=== PATIENT | female | born 1960 | race Caucasian/White ===

== ENCOUNTER → 2019-02-23 00:01 | Outpatient (BNVA) | payer BC, SELFPAY | PROVIDERS: Family Provider Nurse Practitioner Family; PCP Nurse Practitioner Family; Visit Provider Nurse Practitioner Family | DX: S92.352A Displaced fracture of fifth metatarsal bone, left foot, initial encounter for closed fracture (principal); X58.XXXA Exposure to other specified factors, initial encounter | CPT/HCPCS: 73630 ==

== ENCOUNTER → 2019-03-08 08:58 | Outpatient (BNVA) | payer BC, SELFPAY | PROVIDERS: Family Provider Nurse Practitioner Family; PCP Nurse Practitioner Family; Referring Provider Nurse Practitioner Family; Visit Provider Podiatrist Foot & Ankle Surgery | DX: S92.352A Displaced fracture of fifth metatarsal bone, left foot, initial encounter for closed fracture (principal); X58.XXXA Exposure to other specified factors, initial encounter | CPT/HCPCS: 73630 ==

== ENCOUNTER → 2019-03-29 08:52 | Outpatient (BNVA) | payer BC, SELFPAY | PROVIDERS: Family Provider Nurse Practitioner Family; Visit Provider Podiatrist Foot & Ankle Surgery | DX: S92.352A Displaced fracture of fifth metatarsal bone, left foot, initial encounter for closed fracture (principal); X58.XXXA Exposure to other specified factors, initial encounter; B35.1 Tinea unguium | CPT/HCPCS: 73630 ==

== ENCOUNTER → 2019-04-13 14:15 | Outpatient (BNVA) | payer BC, SELFPAY | PROVIDERS: Visit Provider Podiatrist Foot & Ankle Surgery | DX: S92.352A Displaced fracture of fifth metatarsal bone, left foot, initial encounter for closed fracture (principal); X58.XXXA Exposure to other specified factors, initial encounter | CPT/HCPCS: 73630 ==

== ENCOUNTER → 2019-06-24 11:51 | Outpatient (BNVA) | payer BC, SELFPAY | PROVIDERS: PCP Nurse Practitioner Family; Visit Provider Nurse Practitioner Family | DX: R53.83 Other fatigue (principal); Z13.6 Encounter for screening for cardiovascular disorders; R13.10 Dysphagia, unspecified; J32.9 Chronic sinusitis, unspecified | CPT/HCPCS: 80053; 80061; 82306; 82607; 84443; 85025; 86308 ==

== ENCOUNTER 2019-10-12 14:18 | Inpatient (IN) | payer BC, SELFPAY ==
[2019-10-12] VITALS (9 sets, daily range): BP systolic 114–148; BP diastolic 62–109; PULSE 64–83; RESP 16–22; TEMP 36.7–36.8; O2SAT 93–96; BMI 24.7
--- NOTE | 2019-10-12 14:31 | W.ED.CHESTPA ---
HPI - Chest Pain General: Chief Complaint: Chest Pain Stated Complaint: CHEST PAIN Time Seen by Provider: 10/12/19 14:20 History of Present Illness: HPI narrative: 58-year-old female presents emergency room after developing chest pain she was at home preparing to return to work after having had lunch. She began having chest discomfort that radiated into her left jaw and into her left arm along with some pressure she said it was very heavy like an elephant sitting on her chest she never had an episode like this previously she not had any episodes leading up to this. She called her brother who called 911. On arrival EMS did not have any abnormal EKG findings and gave her 3 of sublingual nitro 1 inch of Nitropaste 325 mg of aspirin and 4 mg of morphine by the time she arrived in the ER she had complete resolution of symptoms. Patient was exposed in the workplace to someone with COVID within the last 2 weeks. She is not had any symptoms up to this point she does have a chronic baseline smoker's cough but has not had any fever not had any anosmia she not had any GI symptoms not had any respiratory symptoms. She does smoke and has an extensive cardiac history in her family with early cardiac and in addition she also has a history of hyperlipidemia. MD complaint: chest heaviness Onset (ago): minute(s) Timing of current episode: episodic and now resolved Prior episodes: No Onset: during rest Pain location: left chest Pain radiation: left arm, neck and jaw/teeth Severity: severe Quality: heaviness Relieving factors: nitroglycerin and rest Exacerbating factors: nothing Associated symptoms: Reports dyspnea and nausea; Deny abdominal pain, diaphoresis, fever(s), leg edema, palpitations, sense of impending doom, syncope, vomiting or other Treatment prior to arrival: aspirin, nitroglycerin, oxygen and other (Morphine) Review of Systems Const: Denies: fever(s) or diaphoresis ENMT: Denies: throat pain, ear or mastoid pain, nasal discharge or nasal congestion Card: Denies: palpitations or syncope Resp: Reports: dyspnea GI: Reports: nausea; Denies: abdominal pain or vomiting : Denies: flank pain, difficulty voiding, dysuria, urinary frequency or urinary urgency Skin/Breast: Denies: rash or pruritus PFS ED PFSH: Medical History Abnormal mammogram Acid reflux Biliary dyskinesia Cervical spine instability Dyslipidemia History of hypokalemia Hormone replacement therapy GENE (obstructive sleep apnea) Psoriasis Psoriatic arthritis Smoking addiction Statin intolerance Surgical History History of breast augmentation History of cholecystectomy History of hysterectomy Family History Mother CAD (coronary artery disease) Brother CAD (coronary artery disease) Social History Smoking and tobacco status: current every day smoker Alcohol intake: never Substance/Drug Use: never Lives independently: Yes Marital status: Current occupational status: employed Physical Exam Const: COMMON NORMALS: no acute distress GENERAL APPEARANCE: cooperative and comfortable ORIENTATION/CONSCIOUSNESS: Yes awake, Yes oriented to person, Yes oriented to place and Yes oriented to time HENMT: COMMON NORMALS: normocephalic, atraumatic, hearing grossly normal bilaterally, external ears normal, EAC's normal, TM's normal bilaterally, Normal nasal mucous membranes and turbinates present, moist oral mucous membranes and oropharynx normal HEAD & SCALP: normocephalic and atraumatic NOSE: Normal nasal mucous membranes and turbinates present EXTERNAL EAR: Yes external ears normal EXTERNAL AUDITORY CANAL: EAC's normal TYMPANIC MEMBRANE: TM's normal bilaterally Eye: COMMON NORMALS: Equal, round and reactive pupils present, EOMs intact bilaterally, conjunctivae normal and no scleral icterus CONJUNCTIVA: Yes conjunctivae normal PUPIL: Yes Equal, round and reactive pupils present Neck/C-Spine: COMMON NORMALS: full ROM, no lymphadenopathy, supple and no JVD Lymph: LYMPHATIC: no lymphadenopathy noted and no lymphedema noted Resp: COMMON NORMALS: normal respiratory effort, No retractions, No use of accessory muscles and clear to auscultation bilaterally AUSCULTATION: clear to auscultation bilaterally Cardio: COMMON NORMALS: no JVD, regular rate, regular rhythm and No murmurs present (Cardio) RATE: regular rate RHYTHM: regular rhythm GI: COMMON NORMALS: Soft to palpation and No hepatosplenomegaly present AUSCULTATION: Yes normoactive bowel sounds PALPATION: Yes Soft to palpation, No Tenderness to palpation present (GI), No Guarding due to palpation present (GI) and Yes No hepatosplenomegaly present Extremity: COMMON NORMALS: normal to inspection, capillary refill normal, no clubbing, cyanosis or edema, no calf tenderness and no pedal edema Neuro: SENSORIUM/ORIENTATION: Yes oriented to person, Yes oriented to place and Yes oriented to time Skin: COMMON NORMALS: no rashes or lesions noted GENERAL SKIN EXAM: no rashes or lesions noted Course Vital Signs: Vital signs: Vital Signs Temperature 98.7 F 10/13/19 07:30 Pulse Rate 82 10/13/19 07:30 Respiratory Rate 18 10/13/19 07:30 Blood Pressure 150/88 10/13/19 07:30 Pulse Oximetry 90 10/13/19 07:30 MDM - Chest Pain MDM Narrative: Medical decision making narrative: Chest pain relieved by nitro in a patient who has hyperlipidemia strong family history and very suspicious course. Nonspecific ST changes discussed with hospitalist will go ahead and admit for rule out and stress testing Lab Data: Labs: Lab Results 10/12/19 10/12/19 10/12/19 Range/Units 15:14 15:14 15:14 WBC 8.7 (4.0-10.0) 10^3/ uL RBC 4.18 (4.1-5.3) 10^6/u L Hgb 12.1 (11.5-15.3) g/dL Hct 36.0 L (37.0-47.0) % MCV 86.1 (81-99) fL MCH 28.9 (28.0-34.0) pg MCHC 33.6 (30.0-36.0) g/dL RDW 13.7 (12.1-15.1) % Plt Count 290 (130-400) 10^3/c mm MPV 11.1 H (7.4-10.4) fL Neut % (Auto) 62.8 % Lymph % (Auto) 29.6 % [place] % (Auto) 5.9 % Eos % (Auto) 1.2 % Baso % (Auto) 0.3 % Neut # (Auto) 5.46 (1.8-7.7) 10^3/u L Lymph # (Auto) 2.6 (0.8-4.8) 10^3/u L [place] # (Auto) 0.5 (0.2-0.9) 10^3/u L Eos # (Auto) 0.1 (0.0-0.8) 10^3/u L Baso # (Auto) 0.0 (0.0-0.1) 10^3/u L Nucleated RBC % (a uto) 0 % Nucleated RBCs # 0.0 /100WBC Sodium 143 (136-145) mmol/L Potassium 3.3 L (3.5-5.1) mmol/L Chloride 106 (98-107) mmol/L Carbon Dioxide 26 (22-29) mmol/L Anion Gap 14.3 (5-19) BUN 8 (6-20) mg/dL Creatinine 0.5 (0.5-0.9) mg/dL GFR Calculation 126.3 (90-130) mL/min Glucose 132 H (65-115) mg/dL Estimat Average Gl ucose Hemoglobin A1c (4.0-6.0) % Calculated Osmolal ity 294 (285-295) mOsm/k g Calcium 8.9 (8.5-10.5) mg/dL Troponin T Baselin e 68 H (0-10) ng/L 08/25/20 Range/Units 15:14 WBC (4.0-10.0) 10^3/ uL RBC (4.1-5.3) 10^6/u L Hgb (11.5-15.3) g/dL Hct (37.0-47.0) % MCV (81-99) fL MCH (28.0-34.0) pg MCHC (30.0-36.0) g/dL RDW (12.1-15.1) % Plt Count (130-400) 10^3/c mm MPV (7.4-10.4) fL Neut % (Auto) % Lymph % (Auto) % [place] % (Auto) % Eos % (Auto) % Baso % (Auto) % Neut # (Auto) (1.8-7.7) 10^3/u L Lymph # (Auto) (0.8-4.8) 10^3/u L [place] # (Auto) (0.2-0.9) 10^3/u L Eos # (Auto) (0.0-0.8) 10^3/u L Baso # (Auto) (0.0-0.1) 10^3/u L Nucleated RBC % (a uto) % Nucleated RBCs # /100WBC Sodium (136-145) mmol/L Potassium (3.5-5.1) mmol/L Chloride (98-107) mmol/L Carbon Dioxide (22-29) mmol/L Anion Gap (5-19) BUN (6-20) mg/dL Creatinine (0.5-0.9) mg/dL GFR Calculation (90-130) mL/min Glucose (65-115) mg/dL Estimat Average Gl ucose 114 Hemoglobin A1c 5.6 (4.0-6.0) % Calculated Osmolal ity (285-295) mOsm/k g Calcium (8.5-10.5) mg/dL Troponin T Baselin e (0-10) ng/L Discharge Plan Discharge Patient Disposition: Admitted As Inpatient Admit Provider: Lalit Moise Discharge Date/Time: 10/12/19 18:17 Coding Level of Care Code ED Combination Worker for Chg Fwd Exam Comprehensive
--- NOTE | 2019-10-12 14:58 | ECG_ITS ---
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 Measurements Intervals [place] Rate: 70 P: 56 HI: 184 QRS: 18 QRSD: 94 T: 74 QT: 382 QTc: 415 Interpretive Statements SINUS RHYTHM WITH OCCASIONAL VENTRICULAR PREMATURE COMPLEXES NONSPECIFIC T-WAVE ABNORMALITY Compared to ECG 11/05/2014 23:04:16 Ventricular premature complex(es) now present T-wave abnormality still present Electronically Signed On 10-12-2019 17:28:23 CDT by Niecy Lao M.D. [email or web address] [email or web address].[email or web address]/store/[id number] f
[2019-10-12 15:20] LABS: Basophils % 0.3 %; Eosinophils # 0.1 10^3/uL (0.0-0.8); Eosinophils % 1.2 %; Hemoglobin 12.1 g/dL (11.5-15.3); Lymphocytes # 2.6 10^3/uL (0.8-4.8); Lymphocytes % 29.6 %; Mean Corpuscular HGB Conc 33.6 g/dL (30.0-36.0); Mean Corpuscular Hemoglobin 28.9 pg (28.0-34.0); Mean Corpuscular Volume 86.1 fL (81-99); Mean Platelet Volume 11.1 fL (7.4-10.4); Monocytes # 0.5 10^3/uL (0.2-0.9); Monocytes % 5.9 %; Neutrophils # 5.46 10^3/uL (1.8-7.7); Neutrophils % 62.8 %; Nucleated Red Blood Cells % 0 %; Platelet Count 290 10^3/cmm (130-400); Red Blood Count 4.18 10^6/uL (4.1-5.3); Red Cell Distribution Width 13.7 % (12.1-15.1); White Blood Count 8.7 10^3/uL (4.0-10.0)
[2019-10-12 15:37] LABS: Anion Gap 14.3 (5-19); Blood Urea Nitrogen 8 mg/dL (6-20); Calcium 8.9 mg/dL (8.5-10.5); Carbon Dioxide 26 mmol/L (22-29); Chloride 106 mmol/L (98-107); Glomerular Filtration Rate 126.3 mL/min (90-130); Glucose 132 mg/dL (65-115); Osmolality Calculated 294 mOsm/kg (285-295); Potassium 3.3 mmol/L (3.5-5.1); Sodium 143 mmol/L (136-145)
[2019-10-12 15:41] LABS: Troponin(5th) Baseline 68 ng/L (0-10)
--- NOTE | 2019-10-12 16:58 | ECG_ITS ---
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 Measurements Intervals [place] Rate: 62 P: 66 OR: 207 QRS: 23 QRSD: 92 T: 85 QT: 423 QTc: 431 Interpretive Statements SINUS RHYTHM NONSPECIFIC T-WAVE ABNORMALITY Compared to ECG 10/12/2019 14:27:54 Ventricular premature complex(es) no longer present T-wave abnormality still present Electronically Signed On 10-12-2019 17:30:03 CDT by Niecy Lao M.D. [id number]
[2019-10-12 17:29] LABS: Troponin 5 2HR 91.72 ng/L (0-10)
[2019-10-12 17:38] LABS: Troponin 5 2HR Delta 23.72 ABS# (0-10)
--- NOTE | 2019-10-12 18:38 | PM.HP ---
Providers/Chief Complaint Admitting Physician: Lalit Moise Primary Care Provider: JOSHUA Cary Chief Complaint: CHEST PAIN History of Present Illness Charis Petersen is a pleasant 58 year old lady, current smoker with history of HLD, history of [place] in her mother, brother, was running from home to work after a break and started having episode of chest pressure, which she described as a heavy weight on her chest, radiating to the left arm, to her jaw. The pain continued up until EMS arrived and she received 4 aspirins, nitroglycerin, Nitropaste, morphine, all of which had resolved the pain. At the time of my visit she was chest pain-free. EKG showed nonspecific T wave changes. Troponin elevated at 68. She has had no respiratory symptoms. Denies any changes with movement or any recent injury. Denies that it felt like heartburn. Review of Systems Const: Denies: fever(s), chills, body aches or malaise Eyes: Denies: change in vision or eye redness ENMT: Denies: throat pain, oral sores or ear or mastoid pain Card: Reports: chest pain; Denies: edema, pre-syncope or dyspnea on exertion Resp: Denies: dyspnea, productive cough, change in phlegm color or hemoptysis GI: Denies: abdominal pain, nausea, vomiting, diarrhea, constipation, hematochezia or melena : Denies: flank pain, urinary frequency or hematuria Musc: Denies: back pain, joint swelling or joint redness Skin/Breast: Denies: rash, sores or new lesions Neuro: Denies: headache(s), numbness in extremities, weakness in extremities, dizziness, confusion or seizure-like activity Endo: Denies: polyuria or polydipsia Adrian/Lymph: Denies: easy bleeding or purpura All/Imm: Denies: urticaria, throat swelling or tongue swelling Medications/Allergies Home Medications Medication Instructions Recorded Confirmed Last Taken Type adalimumab 40 mg/0.8 mL 40 mg SUBCUT .EVERY 2 WEEKS each 02/23/19 10/12/19 Unknown History subcutaneous syringe kit cetirizine 10 mg tablet 10 mg PO DAILY PRN tab 02/23/19 10/12/19 Unknown History acetaminophen [Tylenol Extra 500 - 1,000 mg PO PRN 10/12/19 10/12/19 Unknown History Strength] Allergies Allergy/AdvReac Type Severity Reaction Status Date / Time No Known Allergies Allergy Verified 10/12/19 14:31 PFSH Acute PFSH: Medical History (Updated 10/12/19 @ 18:52 by Lalit Moise MD) Abnormal mammogram Acid reflux Biliary dyskinesia Cervical spine instability Dyslipidemia History of hypokalemia Hormone replacement therapy GENE (obstructive sleep apnea) Psoriasis Psoriatic arthritis Smoking addiction Statin intolerance Surgical History History of breast augmentation History of cholecystectomy History of hysterectomy Family History Mother CAD (coronary artery disease) Brother CAD (coronary artery disease) Social History Smoking and tobacco status: current every day smoker Alcohol intake: never Substance/Drug Use: never Lives independently: Yes Marital status: Current occupational status: employed Vitals/I&O/Wt Last Vital Signs Temp 98.0 F 10/12/19 18:23 Pulse 69 10/12/19 18:34 Resp 20 H 10/12/19 18:34 BP 114/76 10/12/19 18:34 Pulse Ox 95 10/12/19 18:34 Weight last 48 hrs Weight 67.585 kg Physical Exam Const: COMMON NORMALS: no acute distress and patient oriented x3 HENMT: COMMON NORMALS: oropharynx normal Neck/C-Spine: COMMON NORMALS: no JVD Resp: COMMON NORMALS: normal respiratory effort and clear to auscultation bilaterally AUSCULTATION: clear to auscultation bilaterally Cardio: COMMON NORMALS: no JVD, regular rhythm, S1 normal heart sound present, S2 normal heart sound present and No murmurs present (Cardio) RHYTHM: regular rhythm HEART SOUNDS: S1 normal heart sound present and S2 normal heart sound present GI: COMMON NORMALS: Normal to inspection, nondistended, normoactive bowel sounds present, Soft to palpation and non-tender PALPATION: Yes Soft to palpation Extremity: COMMON NORMALS: no joint enlargement and no pedal edema Neuro: COMMON NORMALS: patient oriented x3 and moves all extremities Skin: COMMON NORMALS: no rashes or lesions noted GENERAL SKIN EXAM: no rashes or lesions noted Data : 10/12/19 15:14 10/12/19 15:14 A&P Assessment and plan (1) NSTEMI (non-ST elevated myocardial infarction): Severe chest pressure after episode of exertion which would not resolve until she received aspirin, nitroglycerin and morphine by EMS. With elevation of troponin, initially 68, but with positive delta and troponin rise further up to 92, high concern for non-STEMI with her significant risk factors including smoking, psoriasis and psoriatic arthritis, HLD, family history of [place] in her mother in her 50s and her brother. Continue daily aspirin. Added anticoagulation with Lovenox. Requested loading dose of Plavix. She is intolerant to statins unfortunately after multiple tries with her prior PCP. We will add only low-dose beta-aiden given heart rates are little bit on the soft side in the 60s. Keep n.p.o. after midnight. Appreciate cardiology assessment as she would likely benefit from additional risk stratification due to high suspicion of underlying coronary disease. Encouraged smoking cessation. Check A1c. Status: Acute (2) Statin intolerance: Reports that multiple medications were tried, cannot remember which ones except for Crestor. Says that it was done by her PCP in [place]. Says that her current PCP may have the medications which were tried. She is willing to discuss with her PCP again with regards to trying an alternative as in case of coronary disease these may be life prolonging medications. Status: Acute (3) Hypokalemia: Replacement requested. Status: Acute (4) Smoking addiction: Discussed smoking cessation for 4 minutes. She understands that she needs to quit, given especially her multiple risk factors for coronary disease. She reports she has been trying to cut down, although this has been difficult. Encouraged her to continue. She states she has been reading a book to help with motivation and feels that it should get her on the right path. Provide nicotine replacement in case of cravings. Status: Acute Additional A&P Information Psoriatic arthritis and psoriasis: This is managed by her heel emery buffer with Janet. GERD GENE Hormone replacement therapy Attestations Medical Necessity Statement*: Admission of over 2 midnights is going to be needed for assessment of management of non-STEMI. 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
[2019-10-12] MEDS: potassium chloride ER 10 mEq Tablet 20 MEQ PO (19:07)
[2019-10-12] MEDS: clopidogrel 300 mg Tablet PO ×2 (19:07→22:37)
[2019-10-12] MEDS: enoxaparin 80 mg/0.8 mL Syringe 70 MG SUBCUT (19:08)
[2019-10-12 19:59] LABS: Estmated Average Glucose 114; Hemoglobin A1C 5.6 % (4.0-6.0)
--- NOTE | 2019-10-12 20:58 | ECG_ITS ---
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 Measurements Intervals [place] Rate: 70 P: 0 SD: 209 QRS: 40 QRSD: 99 T: -5 QT: 420 QTc: 455 Interpretive Statements SINUS RHYTHM NONSPECIFIC T-WAVE ABNORMALITY Compared to ECG 10/12/2019 17:15:20 No significant changes Electronically Signed On 10-13-2019 10:26:33 CDT by Lance Cole M.D. [id number]
[2019-10-12 21:34] LABS: Troponin 5 6HR 113.4 ng/L (0-10); Troponin 5 6HR Delta 45.4 ng/L (0-12)
--- NOTE | 2019-10-12 22:30 | PC.NURSE ---
Called Dr. Kent regarding patients cath tomorrow and medications. Orders to give 300 mg of plavix tonight PO, No Lovenox in the AM and to start a heparin drip in the morning. Also clarified no Benadryl prior to cath. Read back verbal order.
--- NOTE | 2019-10-12 22:40 | PM.CONSULT ---
Providers/Reason For Consult Consulting Physican/Specialty*: Lance Cole MD/ Cardiology Reason for Consult*: Chest pain/troponin elevation Attending Physician: Lalit Moise Primary Care Provider: JOSHUA Cary History of Present Illness History of Present Illness Charis Petersen is a 58 year old female with PMH of smoking,hyperlipidemia, family history of CAD, presented to hospital with chest pain. According to the patient, she went back from work to home and there felt chest pressure radiating to jaw and left arm. Pain continued for 20-30 minutes. She has not noted similar pain before. She received aspirin and nitro which relieved the pain. EKG showed non specific T wave changes with occasional PVCs. Troponin was 68 at presentation that has trended up to 113 at 6 hours. . Review of Systems Const: Denies: fever(s), chills, body aches or malaise Eyes: Denies: change in vision or eye redness ENMT: Denies: throat pain, oral sores or ear or mastoid pain Card: Reports: chest pain; Denies: edema, pre-syncope or dyspnea on exertion Resp: Denies: dyspnea, productive cough, change in phlegm color or hemoptysis GI: Denies: abdominal pain, nausea, vomiting, diarrhea, constipation, hematochezia or melena : Denies: flank pain, urinary frequency or hematuria Musc: Denies: back pain, joint swelling or joint redness Skin/Breast: Denies: rash, sores or new lesions Neuro: Denies: headache(s), numbness in extremities, weakness in extremities, dizziness, confusion or seizure-like activity Endo: Denies: polyuria or polydipsia Adrian/Lymph: Denies: easy bleeding or purpura All/Imm: Denies: urticaria, throat swelling or tongue swelling Meds/Allergies Home Medications and Allergies Home Medications Medication Instructions Recorded Confirmed Last Taken Type adalimumab 40 mg/0.8 mL 40 mg SUBCUT .EVERY 2 WEEKS each 02/23/19 10/12/19 Unknown History subcutaneous syringe kit cetirizine 10 mg tablet 10 mg PO DAILY PRN tab 02/23/19 10/12/19 Unknown History acetaminophen [Tylenol Extra 500 - 1,000 mg PO PRN 10/12/19 10/12/19 Unknown History Strength] Allergies Allergy/AdvReac Type Severity Reaction Status Date / Time No Known Allergies Allergy Verified 10/12/19 14:31 Current Medications Current Medications Generic Name Dose Route Start Last Admin Trade Name Deepali PRN Reason Stop Dose Admin Enoxaparin Sodium 70 mg 10/12/19 19:00 10/12/19 19:08 Lovenox SUBCUT 70 mg Q12H TRES Administration PFSH Acute PFSH: Medical History Abnormal mammogram Acid reflux Biliary dyskinesia Cervical spine instability Dyslipidemia History of hypokalemia Hormone replacement therapy GENE (obstructive sleep apnea) Psoriasis Psoriatic arthritis Smoking addiction Statin intolerance Surgical History History of breast augmentation History of cholecystectomy History of hysterectomy Family History Mother CAD (coronary artery disease) Brother CAD (coronary artery disease) Social History Smoking and tobacco status: current every day smoker Alcohol intake: never Substance/Drug Use: never Lives independently: Yes Marital status: Current occupational status: employed Vitals/I&O/Wt Last Vital Signs Temp 98.1 F 10/12/19 18:54 Pulse 65 10/12/19 22:32 Resp 18 10/12/19 22:32 BP 134/81 10/12/19 22:32 Pulse Ox 93 10/12/19 22:32 Weight last 48 hrs Weight 149 lb Physical Exam Const: COMMON NORMALS: no acute distress and patient oriented x3 HENMT: COMMON NORMALS: oropharynx normal Neck/C-Spine: COMMON NORMALS: no JVD Resp: COMMON NORMALS: normal respiratory effort and clear to auscultation bilaterally AUSCULTATION: clear to auscultation bilaterally Cardio: COMMON NORMALS: no JVD, regular rhythm, S1 normal heart sound present, S2 normal heart sound present and No murmurs present (Cardio) RHYTHM: regular rhythm HEART SOUNDS: S1 normal heart sound present and S2 normal heart sound present GI: COMMON NORMALS: Normal to inspection, nondistended, normoactive bowel sounds present, Soft to palpation and non-tender PALPATION: Yes Soft to palpation Extremity: COMMON NORMALS: no joint enlargement and no pedal edema Neuro: COMMON NORMALS: patient oriented x3 and moves all extremities Skin: COMMON NORMALS: no rashes or lesions noted GENERAL SKIN EXAM: no rashes or lesions noted A&P Assessment and plan (1) NSTEMI (non-ST elevated myocardial infarction): Status: Acute (2) Dyslipidemia: Status: Acute (3) Smoking addiction: Status: Acute Patient presented with typical chest pain, troponin elevation, PVCs on ekg. She has smoking history, HLD and strong family history of CAD. We will schedule her for Left heart cath with possible PCI tomorrow. Risks (including bleeding, infection, renal function worsening, stroke, heart attack and ) and benefits of the procedure discussed in detail. Patient verbalized understanding. Aspirin and Plavix Continue anticoagulation Patient was intolerant to statins in the past NPO past mid night Order echo Thank you for involving us with the care of this patient. 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
[2019-10-13] VITALS (26 sets, daily range): BP systolic 130–157; BP diastolic 76–105; PULSE 58–82; RESP 12–18; TEMP 36.8–37.1; O2SAT 90–95
[2019-10-13 03:57] LABS: Basophils # 0.1 10^3/uL (0.0-0.1); Basophils % 0.8 %; Eosinophils # 0.2 10^3/uL (0.0-0.8); Eosinophils % 2.6 %; Hematocrit 35.2 % (37.0-47.0); Hemoglobin 11.8 g/dL (11.5-15.3); Lymphocytes # 3.5 10^3/uL (0.8-4.8); Lymphocytes % 41.1 %; Mean Corpuscular HGB Conc 33.5 g/dL (30.0-36.0); Mean Corpuscular Hemoglobin 29.6 pg (28.0-34.0); Mean Corpuscular Volume 88.4 fL (81-99); Mean Platelet Volume 11.1 fL (7.4-10.4); Monocytes # 0.6 10^3/uL (0.2-0.9); Monocytes % 6.6 %; Neutrophils # 4.11 10^3/uL (1.8-7.7); Neutrophils % 48.7 %; Nucleated Red Blood Cells % 0 %; Platelet Count 260 10^3/cmm (130-400); Red Blood Count 3.98 10^6/uL (4.1-5.3); Red Cell Distribution Width 13.9 % (12.1-15.1); White Blood Count 8.5 10^3/uL (4.0-10.0)
[2019-10-13 04:23] LABS: Anion Gap 10.4 (5-19); Blood Urea Nitrogen 11 mg/dL (6-20); Calcium 8.9 mg/dL (8.5-10.5); Carbon Dioxide 26 mmol/L (22-29); Chloride 107 mmol/L (98-107); Glomerular Filtration Rate 102.3 mL/min (90-130); Glucose 107 mg/dL (65-115); Osmolality Calculated 287 mOsm/kg (285-295); Potassium 3.4 mmol/L (3.5-5.1); Sodium 140 mmol/L (136-145)
--- NOTE | 2019-10-13 05:59 | PC.NURSE ---
Heparin Drip order placed per Dr. Arechiga orders. Lovenox Dc'd per his request. Baseline PTT obtained. Awaiting results. Will continue to monitor.
[2019-10-13] MEDS: heparin drip 25,000 UNIT/500 ML PREMIX 18.9 UNIT IV (07:15)
[2019-10-13] MEDS: aspirin 325 mg Tablet PO (08:39)
[2019-10-13] MEDS: clopidogrel 75 mg Tablet PO (08:39)
[2019-10-13] MEDS: metoprolol tartrate 25 mg Tablet 12.5 MG PO (08:39)
[2019-10-13] MEDS: sodium chloride 0.9% 1,000 ML 50 ML IV (08:42)
--- NOTE | 2019-10-13 10:55 | XACV_ITS ---
Exam Room: [facility] Ht: 165 cm Wt: 68 kg BSA: 1.77 m2 Gender: Female : 1960 Any Known Allergies: No known allergies Exam Priority: Routine Procedure(s): Procedure Description: Diagnostic procedure Procedure Description: Left Heart Catheterization Procedure Description: Left ventriculography Procedure Description: Coronary Angiography Diagnostic Cath Status: Urgent Diagnostic Findings LM: No significant disease is noted. LAD is a tortuous vessel without significant stenosis. It gives rise to 2 diagonal arteries. Second diagonal artery is small sized vessel and it is possibly the source of coronary to LV fistula. (other possibilty is that OM branch vessel is the source). LCx gives rise to a large OM 1 vessel. There is a 30% stenosis in the mid to distal LCx. RCA is a large dominant vessel and has no significant stenosis. 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 It originates from a diagonal artery or OM. Coronary angiography shows right dominance. 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 Symptoms likely secondary to microvascular disease or vasospasm. No significant disease noted in the Left Main, LAD, Circumflex, or RCA coronary arteries. Normal left ventricular systolic function. Ejection fraction of 50%. Recommendations Aspirin and beta aiden therapy. Diagnostic RX Recommendation: medical therapy and/or counseling Ejection Fraction: 50.0 % Pressures Phase:Rest AO : 156 mmHg / 82 mmHg ( 112 mmHg ) @ 6:43:00 AM 156 mmHg / 80 mmHg ( 111 mmHg ) @ 6:43:00 AM 156 mmHg / 80 mmHg ( 111 mmHg ) @ 6:43:00 AM LV : 167 mmHg / 1 mmHg / @ 6:41:00 AM 164 mmHg / 1 mmHg / @ 6:43:00 AM 162 mmHg / 0 mmHg / @ 6:43:00 AM Valves Phase:DefaultPhase AV : 5.0 mmHg @ 11:50:06 AM AV Mean Gradient: 10.0 mmHg @ 11:50:06 AM Clinical Evaluation EBL: 5mL-10mL Procedural Details Procedure Consent Obtained. Current Diagnosis : Unstable angina. Pre-Procedure Time Out. Identified patient by full name and date of as verbalized by the patient/guarantor. Does the consent match the physician's order: Yes. Accurate & Complete Informed Consent: Yes. Inpatient/Outpatient History & Physical on Chart: Yes. If H&P is completed, is and addenduem needed: No; If yes, is the addendum complete: N/A. Visualize and Verify Site with Patient/Guarantor: N/A. Relevant Radiology Images available: Yes. Pre-op teaching completed and patient verbalized understanding. The risks, benefits, and alternatives of sedation and/or procedure were discussed by physician. The patient agrees to continue. Procedure started. [facility] Clinical Fraility Score: 3: Managing Well. Skidder Operator Indications: Suspected CAD. Chest Pain Symptom Assessment: Typical Angina Symptoms. Correct patient, site and procedure confirmed by cath team. Current diagnosis: Unstable angina. PERRLA. Strong, equal hand repair armature winder helper bilaterally. Lungs clear x 5 lobes. IV Site on Arrival: 20 gauge in the left hand. IV Fluids: 0.9% NaCl at KVO. 100 mL infused prior to landscape and yardwork laborer. Pre Procedural Pulses: bilateral dorsalis pedis was 2+. Pre Procedural Pulses: right radial was 3+. Oxygen started at 2liters/min via nasal canula. right groin was prepped with chloroprep then draped in the usual sterile fashion. right radial was prepped with chloroprep then draped in the usual sterile fashion. Baseline sample Acquired. HR: 65 BPM. Physician arrived. Mary Carlin RT(R) was relieved by Teddy Cody RN, ASSISTANT PRESS OPERATOR as monitoring person. Physician scrubbed in. Immediate Pre-Procedure Time Out. Correct Patient: Yes; Correct Procedure: Yes; Correct Site: Yes; Correct Patient Position: Yes; Correct Supplies: Yes; Dried Flammable Prep: Yes; Blood Products Available: N/A;. Lidocaine 1% infiltrated to the right radial. Arterial access obtained. A 5 lao TIG catheter in over exchange wire. Catheter advanced to the subclavian artery. Wire removed. Glidewire inserted. Catheter advanced to the ascending aorta. Erath wire removed. Multiple views taken of left coronary artery. Inventory is TR Glidewire Angled Stiff Shaft .035 260cm. Baseline sample Acquired. HR: 0 BPM. Catheter redirected to the RCA. Multiple views taken of right coronary artery. Catheter removed over the exchange wire. A 5 lao Angled Pig catheter in over exchange wire. EDP Sample taken: LV 167/1,21; HR: 62 BPM; SpO2: Off%. LV gram performed in GABRIEL @ 10 mL/second for a total of 30 mL. Patient EF: Normal. EDP Sample taken: LV 164/1,23; HR: 66 BPM; SpO2: 98%. Pullback taken: LV 162/0,22; AO 156/82(112); Mean: 10mmHg, Peak to Peak: 5mmHg, SEP: 18sec/min; HR: 65 BPM; SpO2: 98%. Catheter removed over the wire. Physican review of films. A TR Band was successful obtaining hemostatsis at the Right Radial artery insertion site. TR band placed. Hemostasis obtained. Physican scrubbed out. Post Procedure: Pulses reassessed and unchanged. PERRLA. Strong, equal hand repair armature winder helper bilaterally. No VTE prophylaxis required. Medication's Wasted: Lidocaine 1% = 18 mL. Medication's Wasted: Nitro = 49.8 mg. Medication's Wasted: Heparin = 1000 units. Total IV fluids: 34.6 mL. Contrast type used: Omnipaque 300 mgI/mL, 500 mL bottle. Omnipaque 89 mL. Post-op diagnosis: Non obstuctive CAD. Complications: NONE. Estimated blood loss: 5mL-10mL. Procedure completed. Patient transferred by wheelchair to 1st floor. Fluoro: 5:02. Site: Right Radial artery Sheath Size: 6 Fr Hemostasis Method: TR Band Hemostasis Success: Successful Procedure Medications Start: 11:19 AM Stop: 11:19 AM Medication: Versed Amount: 1 mg Route: I.V. Start: 11:20 AM Stop: : AM Medication: Fentanyl Amount: 50 mcg Route: I.V. Start: 11: AM Stop: AM Medication: Versed Amount: 1 mg Route: I.V. Start: 11: AM Stop: : AM Medication: Fentanyl Amount: 50 mcg Route: I.V. Start: 11: AM Stop: : AM Medication: Nitrogylcerin Amount: 200 mcg Route: I.A. Start: 11:30 AM Stop: :30 AM Medication: Heparin Amount: 5000 units Route: I.V. I, the attending physician, have reviewed and verified all procedure medications. Yes, all medications given per verbal order History/Risk Factors Hypertension: No Dyslipidemia: Yes Peripheral Arterial Disease (PAD): No Myocardial Infarction (MN): No Obesity: No Renal Disease: No Tobacco Use: Current/Recent(w/in 1 year) Prior Interventions PCI: No CABG: No Valve Surgery: No Report Signatures Finalized by:Lance Cole MD on 10/15/2019 3:04:36 PM
--- NOTE | 2019-10-13 11:00 | PC.NURSE ---
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
--- NOTE | 2019-10-13 11:10 | W.PM.OPSUD ---
Surgery/Procedure H&P Update DATE OF PROCEDURE: October 13, 2019 DATE H&P PERFORMED: 10/12/19 H&P UPDATE INFORMATION: I have reviewed H&P completed within last 30 days and I have examined patient prior to procedure PREOP DIAGNOSIS: NSTEMI PLANNED PROCEDURE: Operation Date: 10/13/19 10:00 Proposed Procedures p Cardiac Catheterization(Left) - Lance Araiza MD
--- NOTE | 2019-10-13 12:10 | PC.NURSE ---
Patient arrived to floor from labor arbitrator hearing office. TR band intact with 15 ml of air. Neurovascular assessment WNL, VSS. Patient does not report any pain at this time. Nurse to continue to monitor.
--- NOTE | 2019-10-13 12:30 | PC.NURSE ---
Heparin gtt and fluids ordered clarified with Dr. Cole. Physician gave telephone orders to discontinue both. RBVO.
--- NOTE | 2019-10-13 13:16 | P.PN_ITS ---
Subjective Subjective: Interval history: Patient underwent coronary angiography today. There is no obstructive coronary artery disease. LV systolic function was normal based on ventriculogram. She is feeling well. Since coming to the hospital she did not have recurrence of chest discomfort. Medications: Reviewed: Yes Vitals/I&O/Wt Last Vital Signs Temp 98.7 F 10/13/19 07:30 Pulse 82 10/13/19 07:30 Resp 18 10/13/19 07:30 BP 150/88 10/13/19 07:30 Pulse Ox 90 10/13/19 07:30 10/12/19 10/13/19 10/13/19 22:59 06:59 14:59 Intake Total 174.392 / 174.392 Balance 174.392 / 174.392 Weight last 48 hrs Weight 149 lb Physical Exam Const: COMMON NORMALS: no acute distress and patient oriented x3 HENMT: COMMON NORMALS: oropharynx normal Neck/C-Spine: COMMON NORMALS: no JVD Resp: COMMON NORMALS: normal respiratory effort and clear to auscultation bilaterally AUSCULTATION: clear to auscultation bilaterally Cardio: COMMON NORMALS: no JVD, regular rhythm, S1 normal heart sound present, S2 normal heart sound present and No murmurs present (Cardio) RHYTHM: regular rhythm HEART SOUNDS: S1 normal heart sound present and S2 normal heart sound present GI: COMMON NORMALS: Normal to inspection, nondistended, normoactive bowel sounds present, Soft to palpation and non-tender PALPATION: Yes Soft to palpation Extremity: COMMON NORMALS: no joint enlargement and no pedal edema Neuro: COMMON NORMALS: patient oriented x3 and moves all extremities Skin: COMMON NORMALS: no rashes or lesions noted GENERAL SKIN EXAM: no rashes or lesions noted Data : 10/13/19 03:42 10/13/19 03:42 A&P Assessment and plan (1) Chest pain: Status: Acute (2) Smoking addiction: Status: Acute (3) Dyslipidemia: Status: Acute (4) Hypertension: Status: Acute Patient underwent coronary angiography today. There is no significant coronary artery disease. Her presentation with chest discomfort could be from vasospasm or microvascular disease. Continue aspirin. Plavix can be discontinued. I will recommend up titrating beta-aiden as her high blood pressure has been high in the hospital and she was not on any antihypertensive medications at home. She has a history of hyperlipidemia and her cholesterol level according to the family has been high. She did not tolerate statin therapy in the past. She can be started on ezetimibe. She can be discharged home from cardiology standpoint. Thank you for involving us with the care of this patient. 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
[2019-10-13 14:18] LABS: Partial Thromboplastin Time 193.2 SECONDS (23.9-36.7)
--- NOTE | 2019-10-13 14:20 | PC.CHAP ---
Pastoral Care Encounter/Spiritual Assessment Type of Contact [] Declined meal grinder tender visit [] Patient/Family/Request visit [] Outpatient visit [] Follow-up visit [] Physician referral [] Code/Alert [X] Routine visit [] Staff referral [] Actively dying [] Patient sleeping [] Family support [] [] Out of room [] Palliative care [] [] Receiving care in room [] Pre-surgical visit [] Trauma [] Long length of stay [] ICU visit [] Other: Relational/Emotional Strength [] Patient feels connected with others/family/visitors/staff [] Distress [] Loneliness/isolation [] Abandonment Spirituality of Patient [] Person of Linda [] Attends Orthodox of their Linda [] Believes in Prayer [] Reads Bible or Hoahaoism materials [] There are Spiritual issues to be addressed Wind Site Manager Interventions [] Prayer [] Active listening [] Non-anxious presence [] Spiritual/emotional support [] Crisis/trauma care [] Spiritual counseling [] Bereavement support [] Provided bereavement packet [] Provided Bible/devotional materials [] Provided toy/stuffed animal, coloring book to patient or family member [] Provided Communion [] Anointing/Harrison [] Salvation [] Completed spiritual assessment [] Other: Impact on Illness or Injury [] Angry [] Fearful [] Anxious [] Often cries [] Exhaustion [] Unable to work [] Unable to attend baptist [] Unable to walk/stand [] Unable to read [] Unable to drive [] Unable to eat/drink [] Unable to sleep [] Unable to be with family [] Patient intubated [] Other: Summary Time spent with patient
--- NOTE | 2019-10-13 16:01 | PM.DCS ---
Discharge Providers Date of Admission: 10/12/19 16:35 Date of Discharge: October 13, 2019 Attending Provider at Admission: Lalit Moise Attending Provider at Discharge: Lalit Moise Primary Care Provider: JOSHUA Cary Diagnoses at Discharge Discharge Diagnosis (1) Chest pain: Status: Acute (2) Smoking addiction: Status: Acute (3) Dyslipidemia: Status: Acute (4) Hypertension: Status: Acute Reason for Visit Reason for Visit: CHEST PAIN Hospital Course Hospital Course: Very pleasant 58 yo lady was admitted for assessment and treatment after an episode of chest pressure which she developed after running back to 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 The symptoms resolved after receiving aspirin, nitroglycerin tablets and paste, and morphine given by EMS. In the hospital with noted progressive troponin elevation suggestive of non-STEMI due to which was started on aspirin, loaded with Plavix, started on beta-aiden, received anticoagulation. She is intolerant of statin, reports with multiple statins tried in the past. During hospitalization she was noted to have elevated blood pressure. A1c is normal. It appears she does have undiagnosed underlying hypertension. She has had no recurrence of symptoms while in the hospital. Underwent additional assessment by coronary geography with finding of tortuous vessels, but no significant blockage to require intervention. With smoking, hyperlipidemia, hypertension, microvascular disease may be suspected. Discussed with her, and at this time recommendation of cardiology she will be continued on aspirin, as it might be started. For hypertension again as per recommendation dose of beta-aiden somewhat increased to 25 mg twice a day. In case of recurrent symptoms of chest pain, possibly vasospasm could be considered, in which case perhaps may benefit from calcium channel blockers. Currently she is feeling well, without any chest discomfort, no trouble breathing, no other complaints. Per cardiology she may follow-up in office if she has any additional questions, is requested to call the office to make an appointment. Please follow-up with her with regards to any recurrence of symptoms. Please follow-up with her regarding smoking, cessation has been encouraged several times. She understands she needs to quit. Please also follow-up and help her optimize control of hypertension. Physical Exam Const: COMMON NORMALS: no acute distress and patient oriented x3 OTHER: She is not in discomfort and in good spirits. Feels comfortable returning home. [facility]: COMMON NORMALS: oropharynx normal Neck/C-Spine: COMMON NORMALS: no JVD Resp: COMMON NORMALS: normal respiratory effort and clear to auscultation bilaterally AUSCULTATION: clear to auscultation bilaterally Cardio: COMMON NORMALS: no JVD, regular rhythm, S1 normal heart sound present, S2 normal heart sound present and No murmurs present (Cardio) RHYTHM: regular rhythm HEART SOUNDS: S1 normal heart sound present and S2 normal heart sound present GI: COMMON NORMALS: Normal to inspection, nondistended, normoactive bowel sounds present, Soft to palpation and non-tender PALPATION: Yes Soft to palpation Extremity: COMMON NORMALS: no joint enlargement and no pedal edema Neuro: COMMON NORMALS: patient oriented x3 and moves all extremities Skin: COMMON NORMALS: no rashes or lesions noted GENERAL SKIN EXAM: no rashes or lesions noted Discharge Data Data Completed and Pending: Pending at discharge Category Date Time Status WAGE AND SALARY SPECIALIST request for service Routin e Exams 10/13/19 10:55 Taken Labs from last 24 hours 10/13/19 10/13/19 10/13/19 12:34 03:42 03:42 WBC RBC Hgb Hct MCV MCH MCHC RDW Plt Count MPV Neut % (Auto) Lymph % (Auto) Hartley % (Auto) Eos % (Auto) Baso % (Auto) Neut # (Auto) Lymph # (Auto) Hartley # (Auto) Eos # (Auto) Baso # (Auto) Nucleated RBC % (a uto) Nucleated RBCs # APTT 193.2 H* D 29.0 Sodium 140 Potassium 3.4 L Chloride 107 Carbon Dioxide 26 Anion Gap 10.4 BUN 11 Creatinine 0.6 GFR Calculation 102.3 Glucose 107 Estimat Average Gl ucose Hemoglobin A1c Calculated Osmolal ity 287 Calcium 8.9 Troponin T 120 Min bear Delta Troponin T Troponin T Hi Sens 6Hr Troponin T Hi Sens 6Hr Delta 10/13/19 10/12/19 10/12/19 03:42 20:58 17:08 WBC 8.5 RBC 3.98 L Hgb 11.8 Hct 35.2 L MCV 88.4 MCH 29.6 MCHC 33.5 RDW 13.9 Plt Count 260 MPV 11.1 H Neut % (Auto) 48.7 Lymph % (Auto) 41.1 Hartley % (Auto) 6.6 Eos % (Auto) 2.6 Baso % (Auto) 0.8 Neut # (Auto) 4.11 Lymph # (Auto) 3.5 Hartley # (Auto) 0.6 Eos # (Auto) 0.2 Baso # (Auto) 0.1 Nucleated RBC % (a uto) 0 Nucleated RBCs # 0.0 APTT Sodium Potassium Chloride Carbon Dioxide Anion Gap BUN Creatinine GFR Calculation Glucose Estimat Average Gl ucose Hemoglobin A1c Calculated Osmolal ity Calcium Troponin T 120 Min bear 91.72 H Delta Troponin T 23.72 H* Troponin T Hi Sens 6Hr 113.4 H Troponin T Hi Sens 6Hr Delta 45.4 H* 10/12/19 15:14 WBC RBC Hgb Hct MCV MCH MCHC RDW Plt Count MPV Neut % (Auto) Lymph % (Auto) Hartley % (Auto) Eos % (Auto) Baso % (Auto) Neut # (Auto) Lymph # (Auto) Hartley # (Auto) Eos # (Auto) Baso # (Auto) Nucleated RBC % (a uto) Nucleated RBCs # APTT Sodium Potassium Chloride Carbon Dioxide Anion Gap BUN Creatinine GFR Calculation Glucose Estimat Average Gl ucose 114 Hemoglobin A1c 5.6 Calculated Osmolal ity Calcium Troponin T 120 Min bear Delta Troponin T Troponin T Hi Sens 6Hr Troponin T Hi Sens 6Hr Delta Vitals: Last Vital Signs Temp 98.7 F 10/13/19 07:30 Pulse 82 10/13/19 07:30 Resp 18 10/13/19 07:30 BP 150/88 10/13/19 07:30 Pulse Ox 90 10/13/19 07:30 Discharge Plan Discharge Patient Disposition: Home Condition: Stable Prescriptions: New ezetimibe 10 mg tablet 10 mg PO DAILY Qty: 30 RF: 0 metoprolol tartrate 25 mg Tablet 25 mg PO BID Qty: 60 RF: 0 aspirin 81 mg tablet,delayed release (DR/EC) 81 mg PO DAILY Qty: 30 RF: 0 Continued Humira 40 mg/0.8 mL syringe kit 40 mg SUBCUT .EVERY 2 WEEKS RF: 0 cetirizine [Zyrtec] 10 mg tablet 10 mg PO DAILY PRN (Reason: Allergy Symptoms) RF: 0 Tylenol Extra Strength 500 mg Tablet 500 - 1,000 mg PO PRN RF: 0 Discharge Orders: Discharge Order (Routine); Ordered 10/13/19 Ordered By: Lalit Moise Referrals: Lance Cole M.D [Physician] - (If needed, please call cardiology office. ) Starr Ibarra FNP [Primary Care Provider] - 4-7 days Discharge Diet: Cardiac Discharge Activity: Limit activity as instructed Patient Instructions: Ezetimibe (By mouth), Left Heart Catheterization (DC), Cigarette Smoking and Your Health (GEN), Hypertension (DC) Activity Restrictions/Additional Instructions: Please stop smoking. Please monitor your blood pressures at least 2 times daily, write down values and bring log to your primary doctor's office. Please discuss with your primary care provider with regards to chest pain episode, as well as results of coronary angiography. Microvascular disease may be suspected as the cause of troponin elevation noted in the hospital, but if having recurrent episodes of chest pain, vasospasm may be considered, and in that case additional treatment options may be available. After discharge avoid lifting over 2 lbs for 3 days with your R hand. If you develop severe pain, swelling or pulsatile mass in your wrist, any numbness, discoloration of hand, or other problems, please immediately seek medical attention. Discharge Attestations Time Spent in Discharge Care*: greater than 30 min Quality Metrics Clinical Quality Measures During this hospital stay, did patient experience: None Coding Level of Care Code Acute Residue Furnace Operator for Estelle Serna Diagnoses Chest pain R07.9 Smoking addiction F17.200 Dyslipidemia E78.5 Hypertension I10
--- NOTE | 2019-10-13 16:53 | PC.NURSE ---
TR band off at 1630. 15 ml of air removed slowly per protocol. Incision asymptomatic, dressing CDI. Patient tolerated well. Nurse to continue to monitor.
--- NOTE | 2019-10-13 18:54 | PC.NURSE ---
Patient was discharged with family member and left via ambulatory at 1800. IV was discontinued with catheter intact. Patient was given discharge instructions and verbalized understanding. Patient signed discharge paper. Right wrist dressing/site WNL. VSS.
--- NOTE | 2019-10-15 08:47 | PC.RESP ---
SMOKING CESSATION INFORMATION SENT TO PATIENT.
== END 2019-10-13 18:00 | disposition home or self-care (01) | DRG 287 ==
LOC: ER 15:37 → CSU 10-13 00:26
PROVIDERS: Family Medicine; Internal Medicine; Admitting Provider Internal Medicine; PCP Nurse Practitioner Family; Visit Provider Internal Medicine
PROC: 4A023N7 Measurement of Cardiac Sampling and Pressure, Left Heart, Percutaneous Approach (ICD-10-PCS; principal; 2019-10-13 10:00)
DX: R07.9 Chest pain, unspecified (principal); I25.10 Atherosclerotic heart disease of native coronary artery without angina pectoris; F17.210 Nicotine dependence, cigarettes, uncomplicated; E78.5 Hyperlipidemia, unspecified; K21.9 Gastro-esophageal reflux disease without esophagitis; Z79.890 Hormone replacement therapy; G47.33 Obstructive sleep apnea (adult) (pediatric); L40.50 Arthropathic psoriasis, unspecified; E87.6 Hypokalemia; I10 Essential (primary) hypertension
CPT/HCPCS: 12345; 36415; 80048; 83036; 84484; 85025; 85730; 93005; 93452; 96372; 99283; C1769; C1887; C1894; J1644; J1650; J2250; J3010; J3490; J7030; Q9967

== ENCOUNTER → 2019-10-19 12:03 | Outpatient (BNVA) | payer BC, SELFPAY | PROVIDERS: PCP Nurse Practitioner Family; Visit Provider Nurse Practitioner Family | DX: E78.5 Hyperlipidemia, unspecified (principal); R53.83 Other fatigue; Z13.6 Encounter for screening for cardiovascular disorders; I10 Essential (primary) hypertension; F17.200 Nicotine dependence, unspecified, uncomplicated; Z68.25 Body mass index [BMI] 25.0-25.9, adult | CPT/HCPCS: 80053; 80061; 82306; 82607; 84443 ==

== ENCOUNTER → 2019-12-01 11:23 | Outpatient (BNVA) | payer BC, SELFPAY | PROVIDERS: PCP Nurse Practitioner Family; Visit Provider Nurse Practitioner Family | DX: M25.542 Pain in joints of left hand (principal); M25.541 Pain in joints of right hand; I10 Essential (primary) hypertension | CPT/HCPCS: 80053; 84550; 85025; 85651; 86038; 86140; 86431 ==

== ENCOUNTER → 2019-12-29 11:31 | Outpatient (BNVA) | payer BC, SELFPAY | PROVIDERS: PCP Nurse Practitioner Family; Visit Provider Nurse Practitioner Family | DX: R74.8 Abnormal levels of other serum enzymes (principal) | CPT/HCPCS: 82977 ==

== ENCOUNTER → 2020-01-14 08:48 | Outpatient (BNVA) | payer BC, SELFPAY | PROVIDERS: PCP Nurse Practitioner Family; Visit Provider Internal Medicine | DX: M25.541 Pain in joints of right hand (principal); R76.8 Other specified abnormal immunological findings in serum; D86.9 Sarcoidosis, unspecified; L40.9 Psoriasis, unspecified; R53.83 Other fatigue; M25.542 Pain in joints of left hand; R10.9 Unspecified abdominal pain; M32.9 Systemic lupus erythematosus, unspecified; Z11.59 Encounter for screening for other viral diseases; Z11.1 Encounter for screening for respiratory tuberculosis | CPT/HCPCS: 99204 ==

== ENCOUNTER 2020-01-14 09:51 | Outpatient (CLI) | payer BC, SELFPAY ==
--- NOTE | 2020-01-14 09:58 | XR_ITS ---
WS: [id number] RIGHT HAND: 2 VIEW(S) TECHNIQUE: PA and lateral. HISTORY: R76.8 - Other specified abnormal immunological findings in serum COMPARISON: None available. No acute fracture or dislocation. No erosions or subluxation. No periostitis. Very minimal narrowing of the interphalangeal joints. XR/XR hand RT 2V [id number] IMPRESSION: Minimal osteoarthritis. No erosions.
--- NOTE | 2020-01-14 09:58 | XR_ITS ---
WS: [id number] LEFT HAND: 2 VIEW(S) TECHNIQUE: PA and lateral. HISTORY: R76.8 - Other specified abnormal immunological findings in serum COMPARISON: None available. No acute fracture or dislocation. Mild narrowing of the interphalangeal joint spaces. No erosions or subluxation. No osteopenia or soft tissue edema. XR/XR hand LT 2V [id number] IMPRESSION: Mild osteoarthritis.
--- NOTE | 2020-01-14 09:58 | XR_ITS ---
WS: [id number] SACROILIAC JOINTS TECHNIQUE: AP and oblique imaging is submitted. HISTORY: L40.9 - Psoriasis, unspecified COMPARISON: None available. No fusion or erosions identified. Very minimal sclerosis along the RIGHT iliac side of the SI joint. No periostitis. No soft tissue abnormality. XR/XR sacroiliac jts m 3V [id number] IMPRESSION: Minimal sclerosis along the RIGHT iliac portion of the SI joint. No erosions.
[2020-01-14 12:39] LABS: Add Urine Microscopic? YES; Bilirubin Urine Neg (Negative); Blood Urine 2+ (Negative); Glucose Urine UA Norm (Normal); Ketones Urine Negative (Negative); Leukocyte Esterase Urine Negative (Negative); Nitrate Urine Negative (Negative); Protein Urine Neg (Negative); Urine Appearance Clear (CLEAR); Urine Color Yellow (Yellow); Urobilinogen Urine Norm (Negative); pH Urine 5 (5-7)
[2020-01-14 12:49] LABS: Add Urine Culture? No; Bacteria Urine TRACE /hpf; Mucus Urine 1+ /hpf; RBC Urine 0-4 /hpf (0-2); Squamous Epithelial Cell Urine 15-25 /hpf (0-5); WBC Urine 0-4 /hpf (0-5)
[2020-01-14 13:08] LABS: Erythrocyte Sedimentation Rate 36 mm/hr (0-15)
[2020-01-14 13:17] LABS: 25 Hydroxy Vitamin D 45 ng/mL (30-100); Iron 43 ug/dL (37-145); Magnesium 2.5 mg/dL (1.7-2.3); Phosphorus 4.6 mg/dL (2.5-4.5)
[2020-01-14 13:21] LABS: Parathyroid Hormone 28.4 pg/mL (15-65)
[2020-01-14 13:32] LABS: Hepatitis B Core AB, Total Non-Reactive (Nonreactive); Hepatitis B Surface Antigen Non-Reactive (Nonreactive); Hepatitis C Virus Antibody Non-Reactive (Nonreactive)
[2020-01-16 18:13] LABS: HLA-B27 NEGATIVE (NEGATIVE)
[2020-01-17 00:37] LABS: DNA AB (DS) CRITHIDIA,IFA NEGATIVE (NEGATIVE)
[2020-01-17 12:32] LABS: COMPLEMENT, TOTAL (CH50) >60 U/mL (31-60); Quantiferon Mitogen 8.83 IU/mL; Quantiferon Nil 0.02 IU/mL; Quantiferon TB Gold NEGATIVE (NEGATIVE)
[2020-01-17 13:03] LABS: COMPLEMENT COMPONENT C3C 182 mg/dL (83-193); COMPLEMENT COMPONENT C4C 36 mg/dL (15-57)
[2020-01-17 13:33] LABS: CENTROMERE B ANTIBODY <1.0 NEG AI (<1.0 NEG); Cyclic Citrullinated Peptide <16 UNITS; JO-1 ANTIBODY <1.0 NEG AI (<1.0 NEG); RNP ANTIBODY <1.0 NEG AI (<1.0 NEG); SCL-70 ANTIBODY <1.0 NEG AI (<1.0 NEG); SJOGREN'S ANTIBODY (SS-A) <1.0 NEG AI (<1.0 NEG); SM ANTIBODY <1.0 NEG AI (<1.0 NEG); SS-B <1.0 NEG AI (<1.0 NEG)
[2020-01-17 14:32] LABS: THYROID PEROXIDASE ANTIBODIES <1 IU/mL (<9)
[2020-01-17 15:33] LABS: Gliadin Ab.IgA 5 U (<20); Gliadin Ab.IgG 2 U (<20)
[2020-01-18 15:36] LABS: Tissue Transglutaminase IgA Ab <1 U/mL; Tissue transglutaminase Ab.IgG 2 U/mL
[2020-01-19 12:13] LABS: ANA PATTERN Nuclear, Homogeneous; ANA SCREEN, IFA POSITIVE (NEGATIVE)
[2020-01-20 07:48] LABS: Immunoglobulin A 344 mg/dL (47-310)
== END 2020-01-14 09:52 | disposition home or self-care (01) ==
PROVIDERS: PCP Nurse Practitioner Family; Visit Provider Internal Medicine
DX: D86.9 Sarcoidosis, unspecified (principal); R76.8 Other specified abnormal immunological findings in serum; L40.9 Psoriasis, unspecified; Z51.81 Encounter for therapeutic drug level monitoring; G35 Multiple sclerosis; M19.042 Primary osteoarthritis, left hand
CPT/HCPCS: 36415; 72202; 73120; 81001; 82306; 82310; 82784; 83516; 83540; 83735; 83970; 84100; 85651; 86480; 86704; 86803; 86812; 87340

== ENCOUNTER → 2020-01-27 08:43 | Outpatient (BNVA) | payer BC, SELFPAY | PROVIDERS: PCP Nurse Practitioner Family; Visit Provider Internal Medicine | DX: L40.9 Psoriasis, unspecified (principal); R76.8 Other specified abnormal immunological findings in serum; R31.9 Hematuria, unspecified; R70.0 Elevated erythrocyte sedimentation rate; I25.10 Atherosclerotic heart disease of native coronary artery without angina pectoris; R10.9 Unspecified abdominal pain; F17.210 Nicotine dependence, cigarettes, uncomplicated | CPT/HCPCS: 99214 ==

== ENCOUNTER 2020-01-27 13:44 | Outpatient (CLI) | payer BC, SELFPAY | END 2020-01-27 13:45 | LOC: RAD 07-18 13:44 | PROVIDERS: PCP Nurse Practitioner Family; Visit Provider Nurse Practitioner Family | DX: R10.9 Unspecified abdominal pain (principal); R31.9 Hematuria, unspecified | CPT/HCPCS: 80053; 81003; 85025 ==

== ENCOUNTER 2020-01-28 22:25 | Inpatient (IN) | payer BC, SELFPAY ==
[2020-01-28 22:32] VITALS: BP 158/96; PULSE 99; RESP 28; TEMP 36.7; O2SAT 91; BMI 27.4
--- NOTE | 2020-01-28 22:33 | CTR_ITS ---
PROCEDURE INFORMATION: Exam: CT Abdomen And Pelvis With Contrast Exam date and time: 01/28/2020 10:38 PM Age: 59 years old Clinical indication: Abdominal pain; Localized; Prior surgery; Surgery type: Hysterectomy; Patient HX: Lower abd pain x 2 days. TECHNIQUE: Imaging protocol: Computed tomography of the abdomen and pelvis with intravenous contrast. Radiation optimization: All CT scans at this facility use at least one of these dose optimization techniques: automated exposure control; mA and/or kV adjustment per patient size (includes targeted exams where dose is matched to clinical indication); or iterative reconstruction. Contrast material: OMNI 300; Contrast volume: 95 ml; Contrast route: INTRAVENOUS (IV); COMPARISON: CR Hips Bilat 3-4v wwo Pelv [id number] 11/19/2018 2:55 PM RADIATION DOSE METRICS: Total DLP (mGy-cm): 551.4 FINDINGS: Liver: There is hypoattenuation of the hepatic parenchyma with fatty infiltration. Gallbladder and bile ducts: Status post cholecystectomy. Pancreas: Normal. No ductal dilation. Spleen: Normal. No splenomegaly. Adrenal glands: Normal. No mass. Kidneys and ureters: Normal. No hydronephrosis. Stomach and bowel: Diverticula are present on the sigmoid colon. There are no inflammatory changes to suggest diverticulitis. Appendix: There is diffuse haziness and strandy opacities seen within the appendiceal mesentery. There are several hyperdensities seen within the proximal appendix. The appendix measures up to 13.4 mm in diameter. There is appendiceal wall enhancement and thickening measuring approximately 2.6 mm. These findings are compatible with acute appendicitis. The Intraperitoneal space: Unremarkable. No free air. No significant fluid collection. Vasculature: Unremarkable. No abdominal aortic aneurysm. Lymph nodes: Unremarkable. No enlarged lymph nodes. Urinary bladder: Unremarkable as visualized. Reproductive: Status post hysterectomy. Bones/joints: Unremarkable. No acute fracture. Soft tissues: Unremarkable. CT/CT abdomen pelvis w con* [id number] IMPRESSION: 1. Prominent appendix measuring up to 13.4 mm diameter exhibiting wall thickening and enhancement and surrounded by inflammatory changes within the appendiceal mesentery, findings compatible with acute appendicitis. There are several appendicoliths present. 2. Fatty infiltration of the liver 3. Diverticulosis of the sigmoid colon Radiation Dose CTDIVOL = (mGy): DLP = 551.4 (mGy-cm)
--- NOTE | 2020-01-28 22:34 | ED_ITS ---
HPI - Abdominal Pain General: Chief Complaint: Abdominal Pain Stated Complaint: abd pain x2days Time Seen by Provider: 01/28/20 22:30 Source: patient Mode of arrival: ambulatory Limitations: no limitations History of Present Illness: HPI narrative: Mercedes is a very nice 59-year-old female who comes in complaining of abdominal pain. Abdominal pain was gradual in onset began slightly less than 2 days ago. Patient states the pain is worse in her right lower quadrant. Patient had hysterectomy and denies any vaginal discharge or bleeding. Denies urinary frequency, urgency or dysuria. Patient has had associated nausea and vomiting. She states any type of movement or moving around makes her pain worse. Remaining still does make it some better but she still has pain. She denies any other complaints or concerns. Associated Symptoms: Reports nausea and vomiting; Denies chills, coffee ground emesis, constipation, GI cramping, diarrhea, dysuria, fever(s), heartburn, hematochezia, hematuria, hematemesis, melena and syncope Review of Systems Const: Denies: fever(s), chills, body aches, fatigue, malaise or diaphoresis Eyes: Denies: change in vision, blurry vision, photophobia, eye discomfort, eye discharge, eye redness or yellow eyes ENMT: Denies: throat pain, odynophagia, hoarseness, swelling of lips/tongue, ear or mastoid pain, ear discharge, change in hearing or nasal discharge Card: Denies: chest pain, palpitations, irregular heart rhythm, edema, lightheadedness, syncope, pre-syncope, dyspnea on exertion or orthopnea Resp: Denies: dyspnea, productive cough, non-productive cough, wheezing, hemoptysis or chest congestion GI: Reports: abdominal pain, nausea and vomiting; Denies: hematemesis, coffee ground emesis, heartburn, diarrhea, constipation, GI cramping, hematochezia or melena : Denies: flank pain, dysuria, urinary frequency, urinary urgency or hematuria Musc: Denies: neck pain, back pain, extremity pain, extremity swelling, joint pain, joint swelling, joint redness, joint warmth or joint stiffness Skin/Breast: Denies: rash, pruritus, erythema, skin pain or skin tenderness Neuro: Denies: headache(s), numbness in extremities, weakness in extremities, sensory changes, lack of coordination, difficulty walking, dizziness, vertigo, confusion, Slurred speech present or seizure-like activity Adrian/Lymph: Denies: easy bruising, easy bleeding, petechiae, purpura or enlarged lymph nodes All/Imm: Denies: urticaria, throat swelling, tongue swelling, facial swelling or acute wheezing PFSH ED PFSH: Medical History (Updated 01/29/20 @ 01:06 by Niecy Carter MD) Abnormal mammogram Acid reflux Biliary dyskinesia Cervical spine instability Coronary artery disease Dyslipidemia History of hypokalemia Hormone replacement therapy GENE (obstructive sleep apnea) Psoriasis Psoriatic arthritis Smoking addiction Statin intolerance Surgical History History of breast augmentation History of cholecystectomy History of hysterectomy Family History Mother CAD (coronary artery disease) Brother CAD (coronary artery disease) Social History Smoking and tobacco status: current every day smoker Second hand smoke exposure: Yes Alcohol intake: never Lives independently: Yes Marital status: Current occupational status: employed History of recent travel: No Current gender identity: Female Physical Exam Const: COMMON NORMALS: no acute distress, patient oriented x3, no limitations and alert GENERAL APPEARANCE: cooperative HENMT: COMMON NORMALS: normocephalic, atraumatic, external ears normal, EAC's normal and Normal external nose present HEAD & SCALP: normal to inspection, normocephalic and atraumatic FACE & SINUS: normal facial exam and face symmetric NOSE: Normal external nose present and Normal nares present EXTERNAL EAR: Yes external ears normal EXTERNAL AUDITORY CANAL: EAC's normal MOUTH: Normal oral and palatal mucosa present, lip normal and tongue normal Eye: COMMON NORMALS: Equal, round and reactive pupils present and conjunctivae normal GENERAL EYE: appearance normal, both eyes and all related structures ALIGNMENT: Yes alignment normal PERIORBITAL: periorbital findings normal EYELID: eyelids normal CONJUNCTIVA: Yes conjunctivae normal SCLERA: sclerae normal PUPIL: Yes Equal, round and reactive pupils present Neck/C-Spine: COMMON NORMALS: full ROM, no lymphadenopathy, supple, no meningeal signs and no JVD GENERAL: Yes normal visual inspection and Yes trachea midline Chest: COMMONS NORMALS: normal inspection of the chest and normal palpation of entire chest wall Resp: COMMON NORMALS: normal respiratory effort, No retractions, No use of accessory muscles and clear to auscultation bilaterally EFFORT & INSPECTION: Yes able to speak in complete sentences and Yes symmetric chest movement AUSCULTATION: clear to auscultation bilaterally, no crackles, no rales, no rhon chi and no wheezes Cardio: COMMON NORMALS: no JVD, regular rate, regular rhythm, S1 normal heart sound present and S2 normal heart sound present RATE: regular rate RHYTHM: regular rhythm HEART SOUNDS: S1 normal heart sound present, S2 normal heart sound present, no click, no gallops, no murmurs and no rubs GI: COMMON NORMALS: Soft to palpation and No hepatosplenomegaly present PALPATION: Yes Soft to palpation, Yes Tenderness to palpation present (GI) (Moderate to severe right lower quadrant), No Guarding due to palpation present (GI), No Rigid due to palpation, Yes No hepatosplenomegaly present, No Hernia present, No Palpable mass present and No Pulsatile mass present : COMMON NORMALS: Yes no CVA tenderness BLADDER/KIDNEY EXAM: Yes no CVA tenderness EXTERNAL FEMALE EXAM: No Hernia present Back/Pelvis: COMMON NORMALS: no CVA tenderness, thoracic and lumbar spine normal to inspection, no thoracic nor lumbar tenderness and thoraco-lumbar ROM normal Extremity: COMMON NORMALS: normal to inspection, full ROM, capillary refill normal, no joint enlargement, no clubbing, cyanosis or edema and no calf tenderness Neuro: COMMON NORMALS: patient oriented x3, CN's II-XII intact bilaterally, moves all extremities, no focal motor deficits and no sensory deficits noted SENSORIUM/ORIENTATION: Yes alert MENINGEAL SIGNS: Yes no meningeal signs SPEECH: speech normal Psych: COMMON NORMALS: mental status grossly normal, Normal thought process present, cooperative, normal affect, speech normal and activity/motor behavior normal SPEECH: Yes normal speech THOUGHT PROCESS: Normal thought process present Skin: COMMON NORMALS: no rashes or lesions noted, turgor normal, no jaundice, no petechiae and no mottling GENERAL SKIN EXAM: no rashes or lesions noted and turgor normal Course Vital Signs: Vital signs: Vital Signs Temperature 98.7 F 01/29/20 01:10 Pulse Rate 86 01/29/20 01:10 Respiratory Rate 18 01/29/20 02:01 Blood Pressure 127/77 01/29/20 01:10 Pulse Oximetry 98 01/29/20 01:10 MDM - Abdominal Pain MDM Narrative: Medical decision making narrative: Mercedes is a very nice 59-year-old female comes in with a 2-day history of abdominal pain. CT scan shows acute appendicitis. I reviewed the case in its entirety, timeline,labs and CT findings with Dr. Shelton. He wants the patient to receive IV antibiotics, IV fluids and pain medicines as she will have less perioperative complications if this is followed. Patient was informed and she is agreeable. She is feeling much better at this time after pain medication. Dr. Carter agrees to admit the patient as she has other chronic medical problems. Dr. Shelton is consulting. Lab Data: Attestation: I reviewed the patient's lab results. Labs: Lab Results 01/28/20 01/28/20 Range/Units 22:39 22:39 WBC 21.0 H (4.0-10.0) 10^3/ uL RBC 4.40 (4.1-5.3) 10^6/u L Hgb 12.8 (11.5-15.3) g/dL Hct 39.2 (37.0-47.0) % MCV 89.1 (81-99) fL MCH 29.1 (28.0-34.0) pg MCHC 32.7 (30.0-36.0) g/dL RDW 13.5 (12.1-15.1) % Plt Count 209 (130-400) 10^3/c mm MPV 11.6 H (7.4-10.4) fL Neut % (Auto) 82.7 % Lymph % (Auto) 10.9 % [place] % (Auto) 5.2 % Eos % (Auto) 0.2 % Baso % (Auto) 0.2 % Neut # (Auto) 17.32 H (1.8-7.7) 10^3/u L Lymph # (Auto) 2.3 (0.8-4.8) 10^3/u L [place] # (Auto) 1.1 H (0.2-0.9) 10^3/u L Eos # (Auto) 0.1 (0.0-0.8) 10^3/u L Baso # (Auto) 0.1 (0.0-0.1) 10^3/u L Nucleated RBC % (a uto) 0 % Nucleated RBCs # 0.0 /100WBC Sodium 136 (136-145) mmol/L Potassium 4.2 (3.5-5.1) mmol/L Chloride 101 (98-107) mmol/L Carbon Dioxide 23 (22-29) mmol/L Anion Gap 16.2 (5-19) BUN 9 (8-23) mg/dL Creatinine 0.5 (0.5-0.9) mg/dL GFR Calculation 125.9 (90-130) mL/min Glucose 179 H (65-115) mg/dL Calculated Osmolal ity 285 (285-295) mOsm/k g Calcium 9.6 (8.5-10.5) mg/dL Total Bilirubin 0.5 (0.15-1.2) mg/dL AST 24 (0-32) U/L ALT 38 H (0-33) U/L Alkaline Phosphata se 108 H (35-105) IU/L Total Protein 7.2 (6.6-8.7) g/dL Albumin 4.2 (3.5-5.2) g/dL Globulin 3.0 (1.3-4.6) g/dL Lipase 16 (13-60) U/L Discharge Plan Discharge Patient Disposition: Placed in Observation Admit Provider: Niecy Carter Clinical Impression: Acute appendicitis Qualifiers: Acute appendicitis type: with localized peritonitis Appendicitis gangrene presence: without gangrene Appendicitis perforation presence: without perforation Appendicitis abscess presence: without abscess Qualified Code(s): K35.30 - Acute appendicitis with localized peritonitis, without perforation or gangrene Coding Level of Care Code ED [facility] for [facility] Fwd Exam Comprehensive
[2020-01-28 22:47] LABS: Basophils # 0.1 10^3/uL (0.0-0.1); Basophils % 0.2 %; Eosinophils # 0.1 10^3/uL (0.0-0.8); Eosinophils % 0.2 %; Hematocrit 39.2 % (37.0-47.0); Hemoglobin 12.8 g/dL (11.5-15.3); Lymphocytes # 2.3 10^3/uL (0.8-4.8); Lymphocytes % 10.9 %; Mean Corpuscular HGB Conc 32.7 g/dL (30.0-36.0); Mean Corpuscular Hemoglobin 29.1 pg (28.0-34.0); Mean Corpuscular Volume 89.1 fL (81-99); Mean Platelet Volume 11.6 fL (7.4-10.4); Monocytes # 1.1 10^3/uL (0.2-0.9); Monocytes % 5.2 %; Neutrophils # 17.32 10^3/uL (1.8-7.7); Neutrophils % 82.7 %; Nucleated Red Blood Cells % 0 %; Platelet Count 209 10^3/cmm (130-400); Red Cell Distribution Width 13.5 % (12.1-15.1)
[2020-01-28] MEDS: iohexol 300 mg/mL 100 mL Btl IV (22:48)
--- NOTE | 2020-01-28 22:54 | PC.NURSE ---
selena bates sister [id number]
[2020-01-28] MEDS: sodium chloride 0.9% 1,000 ML 100 ML IV (22:55)
[2020-01-28 22:56] VITALS: RESP 24; O2SAT 95
[2020-01-28] MEDS: morphine 4 mg/mL SDV 1 mL IVP (22:56)
[2020-01-28] MEDS: ondansetron 2 mg/ML SDV 2 mL 4 MG IVP (22:56)
[2020-01-28 23:02] LABS: Alanine Aminotransferase 38 U/L (0-33); Albumin Level 4.2 g/dL (3.5-5.2); Alkaline Phosphatase 108 IU/L (35-105); Blood Urea Nitrogen 9 mg/dL (8-23); Calcium 9.6 mg/dL (8.5-10.5); Carbon Dioxide 23 mmol/L (22-29); Chloride 101 mmol/L (98-107); Creatinine Clr Calc Pharmacy 116.8278; Glomerular Filtration Rate 125.9 mL/min (90-130); Glucose 179 mg/dL (65-115); Lipase 16 U/L (13-60); Osmolality Calculated 285 mOsm/kg (285-295); Sodium 136 mmol/L (136-145); Total Bilirubin 0.5 mg/dL (0.15-1.2); Total Protein 7.2 g/dL (6.6-8.7)
[2020-01-28 23:05] LABS: Anion Gap 16.2 (5-19); Aspartate Amino Transferase 24 U/L (0-32); Potassium 4.2 mmol/L (3.5-5.1)
[2020-01-28 23:18] VITALS: RESP 24; O2SAT 96
[2020-01-28] MEDS: HYDROmorphone 1 mg/mL INJ 1 mL 0.5 MG IVP (23:18)
[2020-01-28] MEDS: piperacillin-tazobactam 4.5 GM in sodium chloride 0.9% (plus) 50 ML IV (23:19)
[2020-01-28 23:20] LABS: Slide Review Slide Review Perform
[2020-01-28 23:22] VITALS: BP 149/87; PULSE 100; RESP 24; O2SAT 94
--- NOTE | 2020-01-28 23:34 | P.HP_ITS ---
Providers/Chief Complaint Primary Care Provider: JOSHUA Cary Chief Complaint: abd pain x2days History of Present Illness Charis Petersen is a 59 year old female who presented today to the hospital with chief complaint of lower quadrant pain which is bilateral. Patient is stating that this is her third bout of lower abdominal pain. First episode was in December and second around . Every time she gets bilateral lower quadrant pain but this time it is associated with 3-4 episodes of emesis, nausea and fever. Because of worsening of pain she decided to come to the hospital for further evaluation. Diagnosis in the ER revealed sepsis secondary to appendicitis, Dr. Shelton has been notified and consulted, she has been given fentanyl, Zofran, Zosyn and fluid resuscitation, appendix [address] abdomen no signs of pus or perforation Review of Systems Const: Reports: fever(s), change in appetite and fatigue; Denies: chills Eyes: Denies: change in vision ENMT: Denies: throat pain Card: Denies: chest pain Resp: Denies: dyspnea GI: Reports: abdominal pain, nausea, vomiting and GI cramping; Denies: diarrhea or constipation : Denies: flank pain Musc: Denies: neck pain Skin/Breast: Denies: rash Neuro: Denies: headache(s) Psych: Denies: anxiety Endo: Denies: polyuria Adrian/Lymph: Denies: easy bruising All/Imm: Denies: urticaria Medications/Allergies Home Medications Medication Instructions Recorded Confirmed Last Taken Type adalimumab 40 mg/0.8 mL 40 mg SUBCUT .EVERY 2 WEEKS each 02/23/19 01/27/20 Unknown History subcutaneous syringe kit cetirizine 10 mg tablet 10 mg PO DAILY PRN tab 02/23/19 01/27/20 Unknown History Tylenol Extra Strength 500 - 1,000 mg PO PRN 10/12/19 01/27/20 Unknown History aspirin 81 mg PO DAILY #30 tab 10/13/19 01/27/20 Unknown Rx ezetimibe 10 mg tablet 10 mg PO DAILY #30 tab 10/19/19 01/27/20 Unknown Rx metoprolol succinate 25 mg 25 mg PO DAILY #90 tab 12/01/19 01/27/20 Unknown Rx tablet,extended release 24 hr diclofenac sodium 1 % topical gel 2 g TOPICAL QID #100 g 01/14/20 01/27/20 Unknown Rx certolizumab pegol 400 mg SUBCUT .COMPLEX #3 ea 01/27/20 01/27/20 Unknown Rx ciprofloxacin HCl 500 mg tablet 500 mg PO BID #20 tab 01/28/20 01/28/20 Unknown Rx metronidazole 500 mg tablet 500 mg PO TID #30 tab 01/28/20 01/28/20 Unknown Rx Allergies Allergy/AdvReac Type Severity Reaction Status Date / Time No Known Allergies Allergy Verified 01/27/20 13:35 PFSH Acute PFSH: Medical History (Updated 01/29/20 @ 01:06 by Niecy Carter MD) Abnormal mammogram Acid reflux Biliary dyskinesia Cervical spine instability Coronary artery disease Dyslipidemia History of hypokalemia Hormone replacement therapy GENE (obstructive sleep apnea) Psoriasis Psoriatic arthritis Smoking addiction Statin intolerance Surgical History History of breast augmentation History of cholecystectomy History of hysterectomy Family History Mother CAD (coronary artery disease) Brother CAD (coronary artery disease) Social History Smoking and tobacco status: current every day smoker Second hand smoke exposure: Yes Alcohol intake: never Lives independently: Yes Marital status: Current occupational status: employed History of recent travel: No Current gender identity: Female Vitals/I&O/Wt Last Vital Signs Temp 98.0 F 01/28/20 22:32 Pulse 100 01/28/20 23:22 Resp 24 H 01/28/20 23:22 BP 149/87 01/28/20 23:22 Pulse Ox 94 01/28/20 23:22 Weight last 48 hrs Weight 72.575 kg Physical Exam Narrative: EXAM NARRATIVE: Very pleasant middle-aged female Seems to be in distress because abdominal pain Current abdominal pain 6/10 Focal peritonitis signs, extremely tender to palpation right lower quadrant, I did not notice diffuse rigidity or guarding S1, S2 no murmur appreciated Adequate breath sounds no acute respiratory distress Irritable mood due to pain EOMI, PERRLA Loss of eyebrows bilaterally Looks clinically dehydrated Lower extremity no edema gangrene or ulcer Data : 01/28/20 22:39 01/28/20 22:39 A&P Assessment and plan (1) Acute appendicitis: Status: Acute Qualifiers: Acute appendicitis type: with localized peritonitis Appendicitis abscess presence: without abscess Appendicitis gangrene presence: without gangrene Appendicitis perforation presence: without perforation Qualified Code(s): K35.30 - Acute appendicitis with localized peritonitis, without perforation or gangrene (2) Sepsis: Status: Acute Additional A&P Information Sepsis secondary to appendicitis N.p.o., Zosyn, IV fluid resuscitation Dr. Shelton consulted, serial abdominal exam closely monitor for any signs of per foration, currently abdominal pain 6/10 responsive to analgesia, no active emesis Would give her ketorolac for anti-inflammatory effect, creatinine is 0.5 History of psoriasis: Hold biological agents, DVT prophylaxis SCDs N.p.o., D5 half-normal saline fluid resuscitation Full code Attestations Medical Necessity Statement*: Anticipating stay in the hospital cross more than 2 midnights will need surgical intervention for acute appendicitis and antibiotics for sepsis with source control Time Spent in Patient Care: (>than 50% of time spent in counselling and/or d irect pt care on unit) . 50mins Coding Level of Care Code Acute Taker Off Hemp Fiber for Chg Fwd Diagnoses Acute appendicitis K35.30 Acute appendicitis type: with localized peritonitis Appendicitis abscess presence: without abscess Appendicitis gangrene presence: without gangrene Appendicitis perforation presence: without perforation Sepsis A41.9
[2020-01-29] VITALS (31 sets, daily range): BP systolic 111–147; BP diastolic 65–80; PULSE 74–102; RESP 6–22; TEMP 36.7–37.2; O2SAT 90–98
--- NOTE | 2020-01-29 00:05 | PC.NURSE ---
report given to douglas camacho
[2020-01-29] MEDS: dextrose 5%-sod chloride 0.45% 1,000 ML 100 ML IV (02:00)
[2020-01-29] MEDS: HYDROmorphone 1 mg/mL INJ 1 mL 2 MG IVP ×2 (02:01→07:45)
[2020-01-29 03:26] LABS: Bilirubin Urine Neg (Negative); Blood Urine Neg (Negative); Glucose Urine UA Norm (Normal); Ketones Urine 1+ (Negative); Leukocyte Esterase Urine Negative (Negative); Nitrate Urine Negative (Negative); Protein Urine Neg (Negative); Urine Appearance Clear (CLEAR); Urine Color Yellow (Yellow); Urobilinogen Urine Norm (Negative); pH Urine 6.5 (5-7)
[2020-01-29 03:30] LABS: Add Urine Culture? No; Bacteria Urine TRACE /hpf; Mucus Urine 2+ /hpf; RBC Urine 0-4 /hpf (0-2); WBC Urine 0-4 /hpf (0-5)
[2020-01-29 05:41] LABS: Basophils % 0.2 %; Hematocrit 37.8 % (37.0-47.0); Hemoglobin 12.3 g/dL (11.5-15.3); Lymphocytes # 1.6 10^3/uL (0.8-4.8); Mean Corpuscular HGB Conc 32.5 g/dL (30.0-36.0); Mean Corpuscular Hemoglobin 29.1 pg (28.0-34.0); Mean Corpuscular Volume 89.4 fL (81-99); Mean Platelet Volume 10.9 fL (7.4-10.4); Monocytes # 0.8 10^3/uL (0.2-0.9); Monocytes % 3.9 %; Neutrophils # 17.11 10^3/uL (1.8-7.7); Neutrophils % 87.3 %; Nucleated Red Blood Cells % 0 %; Platelet Count 277 10^3/cmm (130-400); Red Blood Count 4.23 10^6/uL (4.1-5.3); Red Cell Distribution Width 13.7 % (12.1-15.1); White Blood Count 19.6 10^3/uL (4.0-10.0)
[2020-01-29 06:22] LABS: Anion Gap 15.1 (5-19); Blood Urea Nitrogen 8 mg/dL (8-23); Carbon Dioxide 26 mmol/L (22-29); Chloride 99 mmol/L (98-107); Creatinine Clr Calc Pharmacy 97.3565; Glucose 132 mg/dL (65-115); Osmolality Calculated 282 mOsm/kg (285-295); Potassium 4.1 mmol/L (3.5-5.1); Sodium 136 mmol/L (136-145)
[2020-01-29] MEDS: piperacillin-tazobactam 3.375 GM in sodium chloride 0.9% (plus) 50 ML IV ×3 (07:46→23:33)
--- NOTE | 2020-01-29 08:41 | PM.HP ---
Providers/Chief Complaint Admitting Physician: Niecy Carter MD Primary Care Provider: JOSHUA Cary Chief Complaint: abd pain x2days History of Present Illness Charis Petersen is a 59 year old female who presented to the ER last night with a 2-day history of right lower quadrant abdominal pain which has been progressively worsening. The pain is worse with movement, no relieving factors. The pain does not radiate and is described as sharp and constant. Patient had associated nausea and vomiting, no constipation diarrhea fevers or chills. She is not sure when she had her last colonoscopy. Review of Systems General: Reports: 10 or more systems reviewed and unremarkable except in HPI and below Medications/Allergies Home Medications Medication Instructions Recorded Confirmed Last Taken Type adalimumab 40 mg/0.8 mL 40 mg SUBCUT .EVERY 2 WEEKS each 02/23/19 01/27/20 Unknown History subcutaneous syringe kit cetirizine 10 mg tablet 10 mg PO DAILY PRN tab 02/23/19 01/27/20 Unknown History Tylenol Extra Strength 500 - 1,000 mg PO PRN 10/12/19 01/27/20 Unknown History aspirin 81 mg PO DAILY #30 tab 10/13/19 01/27/20 Unknown Rx ezetimibe 10 mg tablet 10 mg PO DAILY #30 tab 10/19/19 01/27/20 Unknown Rx metoprolol succinate 25 mg 25 mg PO DAILY #90 tab 12/01/19 01/27/20 Unknown Rx tablet,extended release 24 hr diclofenac sodium 1 % topical gel 2 g TOPICAL QID #100 g 01/14/20 01/27/20 Unknown Rx certolizumab pegol 400 mg SUBCUT .COMPLEX #3 ea 01/27/20 01/27/20 Unknown Rx ciprofloxacin HCl 500 mg tablet 500 mg PO BID #20 tab 01/28/20 01/28/20 Unknown Rx metronidazole 500 mg tablet 500 mg PO TID #30 tab 01/28/20 01/28/20 Unknown Rx Allergies Allergy/AdvReac Type Severity Reaction Status Date / Time No Known Allergies Allergy Verified 01/27/20 13:35 PFSH Acute PFSH: Medical History Acid reflux Biliary dyskinesia Coronary artery disease Dyslipidemia GENE (obstructive sleep apnea) Psoriasis Psoriatic arthritis Statin intolerance Surgical History History of breast augmentation History of cholecystectomy History of hysterectomy Family History Mother CAD (coronary artery disease) Brother CAD (coronary artery disease) Social History Smoking and tobacco status: current every day smoker Second hand smoke exposure: Yes Alcohol intake: never Lives independently: Yes Marital status: Current occupational status: employed History of recent travel: No Current gender identity: Female Vitals/I&O/Wt Last Vital Signs Temp 98.3 F 01/29/20 07:47 Pulse 94 01/29/20 08:35 Resp 16 01/29/20 08:35 BP 123/66 01/29/20 08:35 Pulse Ox 94 01/29/20 08:35 01/28/20 01/29/20 01/29/20 22:59 06:59 14:59 Intake Total 100 / 100 Output Total 400 / 400 Balance -300 / -300 Weight last 48 hrs Weight 160 lb Physical Exam Narrative: EXAM NARRATIVE: HEENT: Normocephalic Eye: Sclera /conjunctiva normal Respiratory and chest: Bilateral clear breath sounds on auscultation Cardiovascular: Normal S1 and S2 heart sounds Abdomen: Soft to palpation, tender right lower quadrant, voluntary guarding present, no rigidity Neurological: Oriented to place person and time Skin: Intact, no lesions appreciated on gross exam Data : 01/29/20 05:22 01/29/20 05:22 A&P Assessment and plan (1) Acute appendicitis: 59-year-old female with right lower quadrant pain, nausea, vomiting, leukocytosis and CT scan showing acute appendicitis. Plan for laparoscopic possible open appendectomy Procedure, risks, benefits and alternatives have been discussed with the patient who wishes to proceed with surgery. Status: Acute Qualifiers: Acute appendicitis type: with localized peritonitis Appendicitis abscess presence: without abscess Appendicitis gangrene presence: without gangrene Appendicitis perforation presence: without perforation Qualified Code(s): K35.30 - Acute appendicitis with localized peritonitis, without perforation or gangrene Attestations Medical Necessity Statement*: Acute appendicitis Coding Level of Care Code Acute Cage/Vault Supervisor for [facility] Diagnoses Acute appendicitis K35.30 Acute appendicitis type: with localized peritonitis Appendicitis abscess presence: without abscess Appendicitis gangrene presence: without gangrene Appendicitis perforation presence: without perforation
--- NOTE | 2020-01-29 08:59 | ANES.PREANE2 ---
Pre-Anesthetic Assessment Pre-Anesthetic Assessment: Height/Weight: Height 1.63 m Weight 72.575 kg Temp Pulse Resp BP Pulse Ox 98.3 F 94 16 123/66 94 01/29/20 07:47 01/29/20 08:35 01/29/20 08:35 01/29/20 08:35 01/29/20 08:35 Preop Diagnosis: appendicitis Proposed Procedure: Operation Date: 01/29/20 10:50 Proposed Procedures p Laparoscopic Appendectomy(Not Applicable) - Mason Shelton MD Familial anesthetic complications: None Was Beta David taken within 24 hours: Yes Last intake: Intake Last Liquid Date 01/28/20 Last Liquid Time 23:00 Last Solid Date 01/28/20 Last Solid Time 14:00 Social: Social History: Tobacco and No alcohol Exam: Pre-Anes Outpt Exam: alert, oriented x 3, clear to auscultation bilaterally and regular rate & rhythm Airway: Cervical ROM: WNL MP: 3 Dentition: False Pulmonary: Pulmonary: COPD and Sleep apnea (cpap) CV/HEM: CV/HEM: HTN Comments: no significant ischemia on cath in 2019 GI: GI: GERD Metabolic: Metabolic: Hyperlipidemia Anesthetic Plan: ASA status: 3 Anesthesia: General Risk of > 500 ml blood loss (7ml/kg in children): No Meds/Allergies Current Medications: Current Medications Generic Name Dose Route Start Last Admin Trade Name Freq PRN Reason Stop Dose Admin Hydromorphone HCl 2 mg 01/29/20 01:03 01/29/20 07:45 Hydromorphone 1 Mg/Ml Inj 1 Ml IVP 2 mg Q4H PRN Administration abd pain Sodium Chloride 1,000 mls @ 100 m ls/hr 01/28/20 22:45 01/28/20 22:55 Sodium Chloride 0.9% IV 100 mls/hr .Q10H TRES Administration Dextrose/Sodium Ch loride 1,000 mls @ 100 m ls/hr 01/29/20 01:03 01/29/20 02:00 Dextrose 5%-Sod Chloride 0.45% IV 100 mls/hr .Q10H TRES Administration Piperacillin Sod/T azobactam 50 mls @ 12.5 mls /hr 01/29/20 07:00 01/29/20 07:46 Sod 3.375 gm/ So dium Chloride IV 12.5 mls/hr Q8H TRES Administration Protocol PFSH Anesthesia PFSH: Medical History (Updated 01/29/20 @ 08:43 by Mason Shelton MD) Coronary artery disease Dyslipidemia GERD (gastroesophageal reflux disease) GENE (obstructive sleep apnea) Psoriasis Psoriatic arthritis Statin intolerance Surgical History (Updated 01/29/20 @ 08:43 by Mason Shelton MD) History of breast augmentation History of cholecystectomy History of hysterectomy Status post colonoscopy Family History Mother CAD (coronary artery disease) Brother CAD (coronary artery disease) Social History Smoking and tobacco status: current every day smoker Second hand smoke exposure: Yes Alcohol intake: never Lives independently: Yes Marital status: Current occupational status: employed History of recent travel: No Current gender identity: Female Data Anesthesia CBC & Chem 7: 01/29/20 05:22 01/29/20 05:22 Other Labs: Laboratory Results - last 48 hr 01/28/20 01/28/20 01/29/20 22:39 22:39 01:45 WBC 21.0 H RBC 4.40 Hgb 12.8 Hct 39.2 MCV 89.1 MCH 29.1 MCHC 32.7 RDW 13.5 Plt Count 209 MPV 11.6 H Neut % (Auto) 82.7 Lymph % (Auto) 10.9 [place] % (Auto) 5.2 Eos % (Auto) 0.2 Baso % (Auto) 0.2 Neut # (Auto) 17.32 H Lymph # (Auto) 2.3 [place] # (Auto) 1.1 H Eos # (Auto) 0.1 Baso # (Auto) 0.1 Nucleated RBC % (auto) 0 Nucleated RBCs # 0.0 Sodium 136 Potassium 4.2 Chloride 101 Carbon Dioxide 23 Anion Gap 16.2 BUN 9 Creatinine 0.5 GFR Calculation 125.9 Glucose 179 H Calculated Osmolality 285 Calcium 9.6 Total Bilirubin 0.5 AST 24 ALT 38 H Alkaline Phosphatase 108 H Total Protein 7.2 Albumin 4.2 Globulin 3.0 Lipase 16 Urine Color Yellow Urine Appearance Clear Urine pH 6.5 Ur Specific [place] 1.010 Urine Protein Neg Urine Glucose (UA) Norm Urine Ketones 1+ H Urine Blood Neg Urine Nitrate Negative Urine Bilirubin Neg Urine Urobilinogen Norm Ur Leukocyte Esterase Negative Urine RBC 0-4 H Urine WBC 0-4 H Ur Squamous Epith Cells 5-10 H Amorphous Sediment Not Reportable Urine Bacteria Trace Urine Mucus 2+ 01/29/20 01/29/20 05:22 05:22 WBC 19.6 H RBC 4.23 Hgb 12.3 Hct 37.8 MCV 89.4 MCH 29.1 MCHC 32.5 RDW 13.7 Plt Count 277 MPV 10.9 H Neut % (Auto) 87.3 Lymph % (Auto) 8.0 [place] % (Auto) 3.9 Eos % (Auto) 0.0 Baso % (Auto) 0.2 Neut # (Auto) 17.11 H Lymph # (Auto) 1.6 [place] # (Auto) 0.8 Eos # (Auto) 0.0 Baso # (Auto) 0.0 Nucleated RBC % (auto) 0 Nucleated RBCs # 0.0 Sodium 136 Potassium 4.1 Chloride 99 Carbon Dioxide 26 Anion Gap 15.1 BUN 8 Creatinine 0.6 GFR Calculation 102.0 Glucose 132 H Calculated Osmolality 282 L Calcium 9.0 Total Bilirubin AST ALT Alkaline Phosphatase Total Protein Albumin Globulin Lipase Urine Color Urine Appearance Urine pH Ur Specific [place] Urine Protein Urine Glucose (UA) Urine Ketones Urine Blood Urine Nitrate Urine Bilirubin Urine Urobilinogen Ur Leukocyte Esterase Urine RBC Urine WBC Ur Squamous Epith Cells Amorphous Sediment Urine Bacteria Urine Mucus Cardiac Studies: No Data to Display
--- NOTE | 2020-01-29 09:54 | SUR.PHASEI ---
0920 RECEIVED NOTIFICATION FROM Genna SUÁREZ THAT ZOSYN 3.375 WAS FINISHING INFUSING.
--- NOTE | 2020-01-29 11:31 | PM.OP ---
Operative Report Date of procedure: January 29, 2020 Pre-op Diagnosis: Acute appendicitis Post-op Diagnosis: 1. Acute perforated appendicitis 2. Lysis of small bowel adhesions resulting in enterotomy requiring small bowel resection Procedure Done: Laparoscopic appendectomy Small bowel resection with stapled dgna-hd-neat anastomosis Specimens removed/disposition: 1. Appendix 2. Small bowel Surgeon: Mason Shelton Anesthesia: General Condition: stable Disposition: PACU Procedure: The patient was taken to the Operating Room and intubated under general anesthesia after antibiotic had been administered. Using a 15 blade, a 1-cm infraumbilical incision was made and using open Tim technique, the peritoneal cavity was entered, while dissecting there was bilious material noted and a small bowel loop was noted to be adherent to the abdominal wall at the umbilicus resulting in an enterotomy. The mucosal defect was dissected free and closed with [id number] 3-0 Vicryl suture. 12 mm port was placed and 10-mm 30 degree scope was introduced and 15 mm of pneumoperitoneum was created. Two separate 5mm ports were placed in the left lower quadrant and epigastric region under direct visualization. There was moderate amount of purulent fluid noted in the right paracolic gutter and the distended small bowel loops are dissected free and the base of the cecum was identified. Dissection was carried into the right lower quadrant where a gangrenous appendix was identified and dissected free from the adjacent lateral pelvic wall and adherent small bowel loops. Using [place] forceps, an opening was made in the mesoappendix near the base of the appendix. An Endo IGGY stapler 45mm long 3.5mm blue load was introduced to divide the appendix at it's base. Using electrocautery, the mesoappendix including the appendicular artery was divided. There was no bleeding noted and the staple line appeared intact. At this point the umbilical port was removed and another 5 mm port was placed at the level of the umbilicus in the left midclavicular line. The fascia at the umbilicus was approximated using [id number] 0 Vicryl suture and using scissors the adherent small bowel loop was dissected free from the abdominal wall near the umbilicus. At this point all ports were removed and the segment of small bowel adherent to the abdominal wall was exteriorized where an enterotomy had been made. The serosa of the adherent segment did not appear healthy and therefore I decided to proceed with a small bowel resection. Interrupted 4-0 Vicryl sutures were placed to approximate the healthy proximal and distal segment of small bowel and enterotomies were created using electrocautery, 55 mm blue load IGGY stapler was fired to create a [id number] enteroenterostomy. The previously created enterotomies were grasped with Allis clamps and another 55 mm blue load IGGY stapler was fired distal to the enterotomy to resect the small bowel segment. The anastomosed segment was introduced into the peritoneal cavity and covered with omentum. The peritoneal cavity was irrigated with 4 L of warm saline. 10 cc of 0.5% Marcaine was infiltrated at the port sites. The fascia at the umbilical port was closed using figure of eight 0-Vicryl sutures and subcutaneous tissue was approximated using 3-0 Vicryl and skin at all 4 port sites was closed using yas and sterile dressings. The patient was extubated and transferred recovery room in stable condition.
--- NOTE | 2020-01-29 12:07 | SUR.PHASEI ---
1207-ORAL AIRWAY OUT, SIMPLE MASK AT 6LPM SAT 97%
--- NOTE | 2020-01-29 12:30 | ANE.PACU2 ---
Inpatient post-anesthesia follow up: Airway intact: Yes Vital signs: Temperature 97.9 F Pulse Rate [Monito r] 99 Pulse Rate 109 Respiratory Rate 22 Blood Pressure [Ri ght Arm] 158/96 Blood Pressure 167/103 Pulse Oximetry 92 Oxygen Delivery Me thod [ Room Air Current Rate & Del veronika] Oxygen Delivery Me thod Room Air Oxygen Flow Rate 2 Fraction of Inspir ed Oxygen 28 Hydration adequate: Yes Nausea and vomiting: No Pain level: 2 Mental status: Baseline
[2020-01-29] MEDS: famotidine 20 mg/2 mL INJ IVP (13:00)
[2020-01-29] MEDS: D5-NS 0.45% + KCL 20 mEq 20 MEQ/1,000 ML BAG 100 MEQ IV ×2 (13:00→22:19)
--- NOTE | 2020-01-29 14:47 | PC.NURSE ---
Upon rounding, patient was found to be sleeping- O2 saturation at 89% on room air. Oxygen at 2L via NC applied. O2 sat now 94%
--- NOTE | 2020-01-29 15:14 | PC.NURSE ---
Ambulated patient down hernandez and back. Denies any pain at this time.
--- NOTE | 2020-01-29 16:03 | P.PN_ITS ---
Subjective Subjective: Interval history: Admitted overnight. H&P and labs noted. Today morning seen postoperatively. Lying comfortably in bed. Tolerated procedure well. On examination on room air saturating 91% with blood pressure of 120/70. Vitals/I&O/Wt Last Vital Signs Temp 98.5 F 01/29/20 15:25 Pulse 80 01/29/20 15:25 Resp 15 01/29/20 15:25 BP 126/72 01/29/20 15:25 Pulse Ox 91 01/29/20 15:25 01/29/20 01/29/20 01/29/20 06:59 14:59 22:59 Intake Total 100 / 100 0 / 0 Output Total 400 / 400 400 / 400 275 / 675 Balance -300 / -300 -400 / -400 -275 / -675 Weight last 48 hrs Weight 72.575 kg Physical Exam Narrative: EXAM NARRATIVE: General: Resting postoperatively HEENT: PERRLA, pupils bilaterally equal and reactive Chest: Normal vesicular breath sounds, no added sounds, equal good air entry bilaterally CVS: S1-S2 regular, no murmurs, no tachycardia, no gallops, no rubs Abdomen: Soft, surgical bandage present, mildly tender, bowel sounds sluggish Neuro: No focal deficits, no facial deformity, AO x3, power 5/5 in all limbs Data : 01/29/20 05:22 01/29/20 05:22 A&P Assessment and plan (1) Acute appendicitis: Status: Acute Qualifiers: Acute appendicitis type: with localized peritonitis Appendicitis abscess presence: without abscess Appendicitis gangrene presence: without gangrene Appendicitis perforation presence: without perforation Qualified Code(s): K35.30 - Acute appendicitis with localized peritonitis, without perforation or gangrene (2) Sepsis: Status: Acute (3) Perforated appendix: Status: Acute Additional A&P Information Sepsis secondary to appendicitis: Postoperative day [address] Simon recommendations. Check blood cultures, procalcitonin, MRSA swab. For now continue with Zosyn. If MRSA positive will add vancomycin. Diet, anticoagulation as per Dr. Shelton. For now continue with D5 half NS at 50 cc/h. Goal blood pressure less than 140/90 mmHg. Pain control. Incentive spirometry. Bowel regimen. Check TSH, iron panel, HbA1c. Full code. NPO. Attestations Medical Necessity Statement*: Needs further hospitalization for management of sepsis secondary to perforated appendicitis. Time Spent in Patient Care: Greater than 35 minutes (>than 50% of time spent in counselling and/or direct pt care on unit) . 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
[2020-01-29 16:42] LABS: Procalcitonin 1.33 ng/mL (0-0.5)
[2020-01-29 16:43] LABS: Thyroid Stimulating Hormone 0.48 uIU/mL (0.27-4.20)
[2020-01-29 16:54] LABS: Iron 9 ug/dL (37-145); Percent Saturation 3.2 % (20-50); Total Iron Binding Capacity 273 mcg/dl; Unsaturated Iron Binding 264 ug/dL (112-347)
[2020-01-29] MEDS: sennosides-docusate Tablet 1 TAB PO (17:46)
[2020-01-29] MEDS: HYDROcodone-acetaminophen 5-325 mg Tablet 1 TAB PO ×2 (17:46→23:33)
--- NOTE | 2020-01-29 17:54 | PC.NURSE ---
In post-op, patient has had minimal complaints of pain, only just now receiving hydrocodone 5/325, rating her pain at a five. Patient has been up to the bedside commode three times since surgery, with a total output of 850 ml. Patient up to the bedside commode with minimal assistance. Patient has ambulated down the hallway and around the unit twice with minimal pain and assistance. Patient has had no nausea in the post-op period. Patient's mother visited her from [id number]. Patient has been very pleasant throughout the shift.
--- NOTE | 2020-01-29 17:59 | PC.NURSE ---
Dr. Shelton at bedside
--- NOTE | 2020-01-29 18:34 | PC.NURSE ---
Patient up to the bedside commode and ambulate around unit again. Patient tolerated well.
[2020-01-30] VITALS (10 sets, daily range): BP systolic 137–190; BP diastolic 78–100; PULSE 75–106; RESP 16–24; TEMP 36.7–37.4; O2SAT 90–94
[2020-01-30] MEDS: famotidine 20 mg/2 mL INJ IVP ×3 (00:34→23:50)
[2020-01-30] MEDS: morphine 4 mg/mL SDV 1 mL 3 MG IVP ×2 (04:36→18:26)
[2020-01-30 05:13] LABS: Basophils % 0.2 %; Hematocrit 34.6 % (37.0-47.0); Hemoglobin 11.1 g/dL (11.5-15.3); Lymphocytes # 1.6 10^3/uL (0.8-4.8); Lymphocytes % 8.5 %; Mean Corpuscular HGB Conc 32.1 g/dL (30.0-36.0); Mean Corpuscular Hemoglobin 29.3 pg (28.0-34.0); Mean Corpuscular Volume 91.3 fL (81-99); Mean Platelet Volume 11.1 fL (7.4-10.4); Monocytes # 1.2 10^3/uL (0.2-0.9); Monocytes % 6.3 %; Neutrophils # 15.62 10^3/uL (1.8-7.7); Neutrophils % 84.4 %; Nucleated Red Blood Cells % 0 %; Platelet Count 270 10^3/cmm (130-400); Red Blood Count 3.79 10^6/uL (4.1-5.3); Red Cell Distribution Width 13.8 % (12.1-15.1); White Blood Count 18.5 10^3/uL (4.0-10.0)
[2020-01-30 05:30] LABS: Alanine Aminotransferase 26 U/L (0-33); Albumin Level 3.4 g/dL (3.5-5.2); Alkaline Phosphatase 86 IU/L (35-105); Aspartate Amino Transferase 16 U/L (0-32); Blood Urea Nitrogen 9 mg/dL (8-23); Calcium 9.2 mg/dL (8.5-10.5); Carbon Dioxide 27 mmol/L (22-29); Chloride 105 mmol/L (98-107); Creatinine Clr Calc Pharmacy 97.3565; Globulin 3.4 g/dL (1.3-4.6); Glucose 121 mg/dL (65-115); Osmolality Calculated 288 mOsm/kg (285-295); Sodium 139 mmol/L (136-145); Total Bilirubin 0.4 mg/dL (0.15-1.2); Total Protein 6.8 g/dL (6.6-8.7)
[2020-01-30 05:42] LABS: Estmated Average Glucose 105; Hemoglobin A1C 5.3 % (4.0-6.0)
[2020-01-30] MEDS: enoxaparin 40 mg/0.4 mL Syringe SUBCUT (05:57)
[2020-01-30] MEDS: piperacillin-tazobactam 3.375 GM in sodium chloride 0.9% (plus) 50 ML IV ×3 (07:50→23:45)
[2020-01-30] MEDS: D5-NS 0.45% + KCL 20 mEq 20 MEQ/1,000 ML BAG 100 MEQ IV ×2 (07:50→17:17)
[2020-01-30] MEDS: iron sucrose 200 MG in sodium chloride 0.9% (100 ml) 100 ML 220 MG IV (07:50)
[2020-01-30] MEDS: sennosides-docusate Tablet 1 TAB PO ×2 (07:50→17:17)
--- NOTE | 2020-01-30 08:17 | P.PN_ITS ---
Subjective Subjective: Interval history: Patient had been doing well overnight except for 1 episode of severe abdominal pain this morning. She has been afebrile, no flatus or BM Vitals/I&O/Wt Last Vital Signs Temp 98.5 F 01/30/20 07:44 Pulse 86 01/30/20 07:44 Resp 18 01/30/20 07:44 BP 143/81 01/30/20 07:44 Pulse Ox 93 01/30/20 07:44 01/29/20 01/30/20 01/30/20 22:59 06:59 14:59 Intake Total 981.667 / 1321.667 290 / 1321.667 951.667 / 951.667 Output Total 1225 / 2450 825 / 2450 Balance -243.333 / -1128.333 -535 / -1128.333 951.667 / 951.667 Weight last 48 hrs Weight 160 lb Physical Exam Narrative: EXAM NARRATIVE: Abdomen: Soft, tender, dressings dry and intact Data : 01/30/20 04:57 01/30/20 04:57 Micro: Microbiology 01/29/20 17:32 Blood Culture - Preliminary Blood SPECIMEN COLLECTED 01/29/20 17:26 Blood Culture - Preliminary Blood SPECIMEN COLLECTED A&P Assessment and plan (1) S/P laparoscopic appendectomy: Status post laparoscopic appendectomy with small bowel resection for acute gangrenous appendicitis, hemodynamically stable Continue IV fluids 100 cc/h Continue IV Zosyn Ambulate ad ally. Start clear liquid diet Lovenox for DVT prophylaxis Pepcid for GI prophylaxis Medical management as per hospitalist service Incentive spirometry Senna S for bowel regimen For morphine for pain control Patient will need greater than 2 nights of inpatient stay to ensure resolution of sepsis and return of bowel function Status: Acute Attestations Medical Necessity Statement*: Status post laparoscopic appendectomy for perforated appendicitis requiring continued inpatient stay Coding Level of Care Code Acute Manager Student Services for [facility] Fwd Diagnoses S/P laparoscopic appendectomy Z90.49
[2020-01-30] MEDS: HYDROcodone-acetaminophen 5-325 mg Tablet 1 TAB PO ×3 (08:29→20:46)
[2020-01-30] MEDS: acetaminophen 325 mg Tablet 650 MG PO (12:43)
--- NOTE | 2020-01-30 12:46 | P.PN_ITS ---
Subjective Subjective: Interval history: Postop day 1 for perforated appendicitis. States pain is well controlled, /. Did have one episode of abdominal cramping earlier this morning. Not passing gas or flatus for now. Denies any nausea, vomiting, headache. Vitals have remained stable. He is walking around in the room. Has walked 3-4 times already. Vitals/I&O/Wt Last Vital Signs Temp 99.2 F 01/30/20 11:12 Pulse 80 01/30/20 11:12 Resp 18 01/30/20 11:12 BP 146/84 01/30/20 11:12 Pulse Ox 93 01/30/20 11:12 01/29/20 01/30/20 01/30/20 22:59 06:59 14:59 Intake Total 981.667 / 1031.667 290 / 1321.667 951.667 / 951.667 Output Total 1225 / 1625 825 / 2450 500 / 500 Balance -243.333 / -593.333 -535 / -1128.333 451.667 / 451.667 Weight last 48 hrs Weight 72.575 kg Physical Exam Narrative: EXAM NARRATIVE: General: Resting postoperatively HEENT: PERRLA, pupils bilaterally equal and reactive Chest: Normal vesicular breath sounds, no added sounds, equal good air entry bilaterally CVS: S1-S2 regular, no murmurs, no tachycardia, no gallops, no rubs Abdomen: Soft, surgical bandage present, mildly tender, bowel sounds sluggish Neuro: No focal deficits, no facial deformity, AO x3, power 5/5 in all limbs Data : 01/30/20 04:57 01/30/20 04:57 Micro: Microbiology 01/29/20 17:32 Blood Culture - Preliminary Blood SPECIMEN COLLECTED 01/29/20 17:26 Blood Culture - Preliminary Blood SPECIMEN COLLECTED A&P Assessment and plan (1) Acute appendicitis: Status: Resolved Qualifiers: Acute appendicitis type: with localized peritonitis Appendicitis abscess presence: without abscess Appendicitis gangrene presence: without ga ngrene Appendicitis perforation presence: without perforation Qualified Code(s): K35.30 - Acute appendicitis with localized peritonitis, without per foration or gangrene (2) Sepsis: Status: Acute (3) Perforated appendix: Status: Resolved Additional A&P Information Sepsis secondary to appendicitis: Postoperative day [address] Simon recommendations. Continue with Zosyn. MRSA awaited. If positive will start on vancomycin as well. For now blood cultures have remained negative. Continue with D5 half NS at 50 cc/h. Awaiting bowel functions. Anticoagulation, diet advancement as per Dr. Shelton. Incentive spirometry. Continue to encourage early ambulation. Anemia: Hemoglobin today 11.1, yesterday it was 12.3. Most likely postoperative decline. Iron panel appreciated. Start patient on IV iron supplementation replenish 1 g over 5 days. Full code. Clear liquid diet. Lovenox. Attestations Medical Necessity Statement*: Requires further hospitalization for postoperative management of perforated appendicitis, awaiting renal functions. Time Spent in Patient Care: Greater than 35 minutes (>than 50% of time spent in counselling and/or direct pt care on unit) . Coding Level of Care Code Acute Concrete Pointer for [facility] Fwd Diagnoses Acute appendicitis K35.30 Acute appendicitis type: with localized peritonitis Appendicitis abscess presence: without abscess Appendicitis gangrene presence: without gangrene Appendicitis perforation presence: without perforation Sepsis A41.9 Perforated appendix K35.32
--- NOTE | 2020-01-30 17:40 | PC.NURSE ---
SHIFT SUMMARY PATIENT HAS DONE WELL TODAY. SHE HAS AMBULATED MULTIPLE TIMES IN THE HALLWAY. EXCELLENT URINE OUTPUT. SURGICAL DRESSINGS C/D/I. BOWEL SOUNDS SLIGHTLY IMPROVING. NOT PASSING GAS. PAIN CONTROLLED. NO COMPLAINTS.
[2020-01-31] VITALS (11 sets, daily range): BP systolic 137–175; BP diastolic 75–103; PULSE 62–111; RESP 16–22; TEMP 36.6–37.7; O2SAT 89–98
--- NOTE | 2020-01-31 01:44 | PC.NURSE ---
Faint hypoactive Bowel sounds were auscultated in both lower quadrants of the patient.
[2020-01-31] MEDS: metoprolol tartrate 1 mg/1 mL SDV 5 mL 2.5 MG IV ×3 (02:12→17:25)
--- NOTE | 2020-01-31 02:20 | PC.NURSE ---
Patients BP was 184/99, HR 104, admin metoprolol 2.5 per mar. Will continue to monitor.
[2020-01-31] MEDS: morphine 4 mg/mL SDV 1 mL 3 MG IVP (03:03)
[2020-01-31] MEDS: D5-NS 0.45% + KCL 20 mEq 20 MEQ/1,000 ML BAG 100 MEQ IV (04:02)
[2020-01-31 05:34] LABS: Basophils % 0.2 %; Eosinophils # 0.1 10^3/uL (0.0-0.8); Eosinophils % 0.7 %; Hematocrit 37.7 % (37.0-47.0); Hemoglobin 12.3 g/dL (11.5-15.3); Lymphocytes # 1.5 10^3/uL (0.8-4.8); Lymphocytes % 9.1 %; Mean Corpuscular HGB Conc 32.6 g/dL (30.0-36.0); Mean Corpuscular Hemoglobin 28.7 pg (28.0-34.0); Mean Corpuscular Volume 87.9 fL (81-99); Mean Platelet Volume 11.1 fL (7.4-10.4); Monocytes # 1.1 10^3/uL (0.2-0.9); Monocytes % 6.8 %; Neutrophils # 13.92 10^3/uL (1.8-7.7); Neutrophils % 82.7 %; Nucleated Red Blood Cells % 0 %; Platelet Count 327 10^3/cmm (130-400); Red Blood Count 4.29 10^6/uL (4.1-5.3); Red Cell Distribution Width 13.6 % (12.1-15.1); White Blood Count 16.8 10^3/uL (4.0-10.0)
[2020-01-31 05:49] LABS: Alanine Aminotransferase 22 U/L (0-33); Albumin Level 3.4 g/dL (3.5-5.2); Alkaline Phosphatase 102 IU/L (35-105); Anion Gap 15.8 (5-19); Aspartate Amino Transferase 15 U/L (0-32); Blood Urea Nitrogen 5 mg/dL (8-23); Carbon Dioxide 24 mmol/L (22-29); Chloride 98 mmol/L (98-107); Creatinine Clr Calc Pharmacy 116.8278; Globulin 3.5 g/dL (1.3-4.6); Glomerular Filtration Rate 125.9 mL/min (90-130); Glucose 134 mg/dL (65-115); Osmolality Calculated 277 mOsm/kg (285-295); Potassium 3.8 mmol/L (3.5-5.1); Sodium 134 mmol/L (136-145); Total Bilirubin 0.6 mg/dL (0.15-1.2); Total Protein 6.9 g/dL (6.6-8.7)
--- NOTE | 2020-01-31 06:22 | NUR.SHIFT ---
Patient has had uncontrolled pain throughout the night. she received 3mg of morphine per apr. Metoprolol for BP over 180, PO restarted this morning. While sleeping patient had cpap connected to O2 for SpO2 at 89%.
[2020-01-31] MEDS: enoxaparin 40 mg/0.4 mL Syringe SUBCUT (06:28)
[2020-01-31] MEDS: metoprolol succinate ER (24 HR) 25 mg Tablet PO (08:28)
[2020-01-31] MEDS: iron sucrose 200 MG in sodium chloride 0.9% (100 ml) 100 ML 220 MG IV (08:28)
[2020-01-31] MEDS: sennosides-docusate Tablet 1 TAB PO (08:28)
[2020-01-31] MEDS: piperacillin-tazobactam 3.375 GM in sodium chloride 0.9% (plus) 50 ML IV ×3 (09:04→22:45)
[2020-01-31] MEDS: HYDROcodone-acetaminophen 5-325 mg Tablet 1 TAB PO (09:14)
--- NOTE | 2020-01-31 11:16 | PM.PN ---
Subjective Subjective: Interval history: This morning patient was examined, she is complaining of nausea and abdominal distention, has not passed gas, has not had a bowel movement, no fevers overnight, she did get up out of bed into a chair yesterday, no lightheadedness, dizziness, is still n.p.o., on room air Vitals/I&O/Wt Last Vital Signs Temp 98.0 F 01/31/20 07:48 Pulse 62 01/31/20 08:41 Resp 17 01/31/20 07:48 BP 162/96 01/31/20 07:48 Pulse Ox 94 01/31/20 08:42 01/30/20 01/31/20 01/31/20 22:59 06:59 14:59 Intake Total 1355 / 2466.667 1050 / 3516.667 Output Total 1410 / 2410 780 / 3190 Balance -55 / 56.667 270 / 326.667 Physical Exam Const: COMMON NORMALS: no acute distress and patient oriented x3 HENMT: COMMON NORMALS: normocephalic HEAD & SCALP: normocephalic Neck/C-Spine: COMMON NORMALS: no JVD Resp: COMMON NORMALS: normal respiratory effort, No retractions, No use of accessory muscles and clear to auscultation bilaterally AUSCULTATION: clear to auscultation bilaterally Cardio: COMMON NORMALS: no JVD, regular rate, regular rhythm, S1 normal heart sound present and S2 normal heart sound present RATE: regular rate RHYTHM: regular rhythm HEART SOUNDS: S1 normal heart sound present and S2 normal heart sound present GI: COMMON NORMALS: Soft to palpation and no masses INSPECTION: Yes normal to inspection and Yes abdominal distension AUSCULTATION: Yes Hypoactive bowel sounds present PALPATION: Yes Soft to palpation, Yes Tenderness to palpation present (GI) Details: LLQ, RLQ, LUQ and RUQ, No Guarding due to palpation present (GI) and No Rigid due to palpation OTHER: Surgical incision scars look clean and dry Extremity: COMMON NORMALS: capillary refill normal, no clubbing, cyanosis or edema, no calf tenderness and no pedal edema Neuro: COMMON NORMALS: patient oriented x3 Psych: COMMON NORMALS: mental status grossly normal Data : 01/31/20 05:14 01/31/20 05:14 Micro: Microbiology 01/29/20 17:32 Blood Culture - Preliminary Blood NEGATIVE TO DATE 01/29/20 17:26 Blood Culture - Preliminary Blood NEGATIVE TO DATE A&P Assessment and plan (1) Acute appendicitis: Status: Resolved Qualifiers: Acute appendicitis type: with localized peritonitis Appendicitis abscess presence: without abscess Appendicitis gangrene presence: without gangrene Appendicitis perforation presence: without perforation Qualified Code(s): K35.30 - Acute appendicitis with localized peritonitis, without perforation or gangrene (2) Sepsis: Status: Acute (3) Perforated appendix: Status: Resolved Additional A&P Information Sepsis secondary to appendicitis: Postoperative day 2 Remains afebrile, normotensive Has not had a bowel movement, no passing gas, abdomen is distended this morning Appreciate Dr. Simon recommendations. White blood cell count 16.8 this morning, continue with Zosyn. MRSA awaited. If positive will start on vancomycin as well. For now blood cultures have remained negative. Continue with D5 half NS at 50 cc/h. Awaiting bowel functions. Anticoagulation, diet advancement as per Dr. Shelton. Incentive spirometry. Continue to encourage early ambulation. Anemia: Hemoglobin today 12.3, most likely postoperative decline. Start patient on IV iron supplementation replenish 1 g over 5 days. Full code. Clear liquid diet. 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
[2020-01-31] MEDS: amlodipine 10 mg Tablet PO (11:38)
[2020-01-31] MEDS: metoclopramide 5 mg/mL SDV 2 mL IVP (11:39)
--- NOTE | 2020-01-31 13:42 | PC.RESP ---
Smoking Cessation information sent to patient.
--- NOTE | 2020-01-31 13:57 | P.PN_ITS ---
Subjective Subjective: Interval history: Patient denies significant abdominal pain, no nausea or vomiting though feels distended, no flatus or BM Vitals/I&O/Wt Last Vital Signs Temp 97.9 F 01/31/20 11:31 Pulse 109 H 01/31/20 11:31 Resp 22 H 01/31/20 11:31 BP 167/103 01/31/20 11:31 Pulse Ox 92 01/31/20 11:31 01/30/20 01/31/20 01/31/20 22:59 06:59 14:59 Intake Total 1355 / 3516.667 1050 / 3516.667 Output Total 1410 / 3190 780 / 3190 500 / 500 Balance -55 / 326.667 270 / 326.667 -500 / -500 Physical Exam Narrative: EXAM NARRATIVE: Abdomen: Soft, nontender tender, distended, incision clean dry and intact Data : 01/31/20 05:14 01/31/20 05:14 Micro: Microbiology 01/29/20 17:32 Blood Culture - Preliminary Blood NEGATIVE TO DATE 01/29/20 17:26 Blood Culture - Preliminary Blood NEGATIVE TO DATE A&P Assessment and plan (1) Acute appendicitis: Status: Resolved Qualifiers: Acute appendicitis type: with localized peritonitis Appendicitis a bscess presence: without abscess Appendicitis gangrene presence: without gangrene Appendicitis perforation presence: without perforation Qualified Code(s): K35.30 - Acute appendicitis with localized peritonitis, without perforation or gangrene (2) Perforated appendix: Status: Resolved (3) S/P laparoscopic appendectomy: With postop ileus, leukocytosis trending down slowly Patient is a bit distended advised to stay on ice chips Continue IV Zosyn Ambulate ad ally. Lovenox for DVT prophylaxis Pepcid for GI prophylaxis Patient will need greater than 2 nights of inpatient stay to ensure resolution of obstruction Status: Acute Additional A&P Information Sepsis secondary to appendicitis: Postoperative day [address] Simon recommendations. Continue with Zosyn. MRSA awaited. If positive will start on vancomycin as well. For now blood cultures have remained negative. Continue with D5 half NS at 50 cc/h. Awaiting bowel functions. Anticoagulation, diet advancement as per Dr. Shelton. Incentive spirometry. Continue to encourage early ambulation. Anemia: Hemoglobin today 11.1, yesterday it was 12.3. Most likely postoperative decline. Iron panel appreciated. Start patient on IV iron supplementation replenish 1 g over 5 days. Full code. Clear liquid diet. Lovenox. 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 Fwd Diagnoses Acute appendicitis K35.30 Acute appendicitis type: with localized peritonitis Appendicitis abscess presence: without abscess Appendicitis gangrene presence: without gangrene Appendicitis perforation presence: without perforation Perforated appendix K35.32 S/P laparoscopic appendectomy Z90.49
[2020-01-31] MEDS: famotidine 20 mg/2 mL INJ IVP (14:30)
[2020-02-01] VITALS (13 sets, daily range): BP systolic 121–142; BP diastolic 72–89; PULSE 72–97; RESP 15–19; TEMP 36.7–37.4; O2SAT 92–98
[2020-02-01] MEDS: famotidine 20 mg/2 mL INJ IVP ×2 (00:10→13:18)
[2020-02-01] MEDS: D5-NS 0.45% + KCL 20 mEq 20 MEQ/1,000 ML BAG 100 MEQ IV ×3 (00:15→20:37)
[2020-02-01 02:30] LABS: Basophils # 0.1 10^3/uL (0.0-0.1); Basophils % 0.3 %; Eosinophils # 0.2 10^3/uL (0.0-0.8); Hematocrit 36.5 % (37.0-47.0); Hemoglobin 12.2 g/dL (11.5-15.3); Lymphocytes # 1.9 10^3/uL (0.8-4.8); Lymphocytes % 11.2 %; Mean Corpuscular HGB Conc 33.4 g/dL (30.0-36.0); Mean Corpuscular Volume 86.9 fL (81-99); Mean Platelet Volume 10.9 fL (7.4-10.4); Monocytes # 1.3 10^3/uL (0.2-0.9); Monocytes % 8.1 %; Neutrophils # 13.05 10^3/uL (1.8-7.7); Neutrophils % 78.9 %; Nucleated Red Blood Cells % 0 %; Platelet Count 346 10^3/cmm (130-400); Red Cell Distribution Width 13.6 % (12.1-15.1); White Blood Count 16.5 10^3/uL (4.0-10.0)
[2020-02-01 02:46] LABS: Alanine Aminotransferase 16 U/L (0-33); Albumin Level 3.3 g/dL (3.5-5.2); Alkaline Phosphatase 86 IU/L (35-105); Anion Gap 13.7 (5-19); Aspartate Amino Transferase 11 U/L (0-32); Blood Urea Nitrogen 9 mg/dL (8-23); Calcium 9.1 mg/dL (8.5-10.5); Carbon Dioxide 27 mmol/L (22-29); Chloride 98 mmol/L (98-107); Creatinine Clr Calc Pharmacy 116.8278; Globulin 3.4 g/dL (1.3-4.6); Glomerular Filtration Rate 125.9 mL/min (90-130); Glucose 131 mg/dL (65-115); Osmolality Calculated 280 mOsm/kg (285-295); Potassium 3.7 mmol/L (3.5-5.1); Sodium 135 mmol/L (136-145); Total Bilirubin 0.7 mg/dL (0.15-1.2); Total Protein 6.7 g/dL (6.6-8.7)
[2020-02-01] MEDS: enoxaparin 40 mg/0.4 mL Syringe SUBCUT (05:03)
[2020-02-01] MEDS: morphine 4 mg/mL SDV 1 mL 3 MG IVP (05:26)
--- NOTE | 2020-02-01 05:27 | PC.NURSE ---
Patient became in pain while ambulating around the nurses station.
--- NOTE | 2020-02-01 05:42 | NUR.SHIFT ---
Addendum entered by Alexx Ray RN 02/01/20 06:17: Patient stated that her pain is coming from the upper right quadrant. Original Note: Patient had rested for most of the night. Patient has had no complaints of N/V. Patient has expressed desire to become well enough to be able to be discharged home, because of this, the patient does not want pain medication. However, when the patient was ambulating this morning, her pain became uncontrolled and Morphine per mar was admin when the patient arrived back in bed.
[2020-02-01] MEDS: piperacillin-tazobactam 3.375 GM in sodium chloride 0.9% (plus) 50 ML IV ×2 (07:26→15:18)
[2020-02-01] MEDS: metoprolol succinate ER (24 HR) 25 mg Tablet PO (08:00)
[2020-02-01] MEDS: ondansetron 2 mg/ML SDV 2 mL 4 MG IVP ×3 (08:00→19:48)
[2020-02-01] MEDS: amlodipine 10 mg Tablet PO (08:01)
[2020-02-01] MEDS: sennosides-docusate Tablet 1 TAB PO (08:01)
[2020-02-01] MEDS: iron sucrose 200 MG in sodium chloride 0.9% (100 ml) 100 ML 220 MG IV (08:06)
--- NOTE | 2020-02-01 09:34 | PM.PN ---
Subjective Subjective: Interval history: This morning patient was examined, she is laying in bed, she has not had a bowel movement, is not passing flatus, still feels nauseous, but the Reglan is helping, tells me that the morphine wears off too soon, this morning she is particularly having pain in the right upper quadrant, she is quite tender there, she is a bit frustrated in terms of her progress, Vitals/I&O/Wt Last Vital Signs Temp 98.3 F 02/01/20 08:07 Pulse 95 02/01/20 08:07 Resp 18 02/01/20 08:07 BP 142/87 02/01/20 08:07 Pulse Ox 92 02/01/20 08:07 01/31/20 02/01/20 02/01/20 22:59 06:59 14:59 Intake Total 50 / 1100 160 / 160 Output Total 501 / 1001 350 / 1351 Balance -451 / 99 -350 / -251 160 / 160 Physical Exam Const: COMMON NORMALS: no acute distress and patient oriented x3 HENMT: COMMON NORMALS: normocephalic HEAD & SCALP: normocephalic Neck/C-Spine: COMMON NORMALS: no JVD Resp: COMMON NORMALS: normal respiratory effort, No retractions, No use of accessory muscles and clear to auscultation bilaterally AUSCULTATION: clear to auscultation bilaterally Cardio: COMMON NORMALS: no JVD, regular rate, regular rhythm, S1 normal heart sound present and S2 normal heart sound present RATE: regular rate RHYTHM: regular rhythm HEART SOUNDS: S1 normal heart sound present and S2 normal heart sound present GI: COMMON NORMALS: Normal to inspection, nondistended, normoactive bowel sounds present, non-tender, no masses and no bruits INSPECTION: Yes abdominal distension AUSCULTATION: Yes Hypoactive bowel sounds present Extremity: COMMON NORMALS: capillary refill normal, no clubbing, cyanosis or edema, no calf tenderness and no pedal edema Neuro: COMMON NORMALS: patient oriented x3 Psych: COMMON NORMALS: mental status grossly normal Data : 02/01/20 02:11 02/01/20 02:11 A&P Assessment and plan (1) Acute appendicitis: Status: Resolved Qualifiers: Acute appendicitis type: with localized peritonitis Appendicitis abscess presence: without abscess Appendicitis gangrene presence: without gangrene Appendicitis perforation presence: without perforation Qualified Code(s): K35.30 - Acute appendicitis with localized peritonitis, without perforation or gangrene (2) Sepsis: Status: Acute (3) Perforated appendix: Status: Resolved (4) S/P laparoscopic appendectomy: Status: Acute (5) Postoperative ileus: Status: Acute Additional A&P Information Sepsis secondary to perforated appendicitis, lysis of small bowel adhesions resulting enterotomy requiring small bowel resection: Postoperative day 3 Now with postoperative ileus Remains afebrile, normotensive Has not had a bowel movement, no passing gas, abdomen is still a bit distended this morning, is quite tender in the right upper quadrant Continue Zofran, Reglan Continue [place] I have discontinued morphine, added Dilaudid Appreciate Dr. Shelton recommendations. White blood cell count 16.5 this morning, continue with Zosyn. MRSA awaited. If positive will start on vancomycin as well. For now blood cultures have remained negative. Continue with D5 half NS at 50 cc/h. Awaiting bowel functions. Anticoagulation, diet advancement as per Dr. Shelton. Incentive spirometry. Continue to encourage early ambulation. Anemia: Hemoglobin today 12.2, most likely postoperative decline. Start patient on IV iron supplementation replenish 1 g over 5 days. Full code. Clear liquid diet. Lovenox Plan for today: Serial abdominal exam, monitor for fevers, get up out of bed, nausea control, pain control Attestations Medical Necessity Statement*: Patient requires hospitalization for sepsis secondary to perforated appendicitis, postoperative ileus Time Spent in Patient Care: Greater than 35 minutes (>than 50% of time spent in counselling and/or direct pt care on unit). Coding Level of Care Code Acute Manager Planning for [facility] Fwd Diagnoses Acute appendicitis K35.30 Acute appendicitis type: with localized peritonitis Appendicitis abscess presence: without abscess Appendicitis gangrene presence: without gangrene Appendicitis perforation presence: without perforation Sepsis A41.9 Perforated appendix K35.32 S/P laparoscopic appendectomy Z90.49 Postoperative ileus K91.89; K56.7
[2020-02-01] MEDS: metoclopramide 5 mg/mL SDV 2 mL IVP ×2 (10:43→23:42)
--- NOTE | 2020-02-01 11:22 | XR_ITS ---
WS: [id number] XR abdomen min 2V [id number] REASON FOR EXAM: post op appy/bowel resection day 3 FINDINGS: Significantly dilated loops of bowel which appear to be all small bowel with minimal air in the colon . There was no significant small bowel dilatation on the CT scan of 01/28/2020. There is a segment of bowel overlying the mid pelvis which is nondilated but has a configuration of mural edema. Abnormal bowel segment in the pelvis. No free air or retroperitoneal air. No other significant abnormality. XR/XR abdomen min 2V [id number] IMPRESSION: Development of dilated loops of small bowel since the preoperative CT scan of 1 03/30/2019.
--- NOTE | 2020-02-01 11:25 | PM.PN ---
Subjective Subjective: Interval history: Patient complains of pain, had an episode of emesis yesterday and today, no flatus or BM Vitals/I&O/Wt Last Vital Signs Temp 98.3 F 02/01/20 08:07 Pulse 95 02/01/20 08:07 Resp 18 02/01/20 08:07 BP 142/87 02/01/20 08:07 Pulse Ox 92 02/01/20 08:07 01/31/20 02/01/20 02/01/20 22:59 06:59 14:59 Intake Total 50 / 1100 1160 / 1160 Output Total 501 / 1351 350 / 1351 Balance -451 / -251 -350 / -251 1160 / 1160 Physical Exam Narrative: EXAM NARRATIVE: Abdomen: Soft, distended less than yesterday, tender right lower quadrant, no guarding or rigidity, incisions healing well Data : 02/01/20 02:11 02/01/20 02:11 A&P Assessment and plan (1) Acute appendicitis: Status: Resolved Qualifiers: Acute appendicitis type: with localized peritonitis Appendicitis abscess presence: without abscess Appendicitis gangrene presence: without gangrene Appendicitis perforation presence: without perforation Qualified Code(s): K35.30 - Acute appendicitis with localized peritonitis, without perforation or gangrene (2) Perforated appendix: Status: Resolved (3) S/P laparoscopic appendectomy: With postop ileus, WBC 16.5 Patient had 2 episodes of emesis, obtain abdominal series, if there is significant distention plan for NG tube placement Continue IV Zosyn, added vancomycin Daily labs Ambulate ad ally. Lovenox for DVT prophylaxis Pepcid for GI prophylaxis Appreciate input from the hospitalist service Patient will need greater than 2 nights of inpatient stay to ensure resolution of obstruction Status: Acute Additional A&P Information Sepsis secondary to appendicitis: Postoperative day [address] Simon recommendations. Continue with Zosyn. MRSA awaited. If positive will start on vancomycin as well. For now blood cultures have remained negative. Continue with D5 half NS at 50 cc/h. Awaiting bowel functions. Anticoagulation, diet advancement as per Dr. Shelton. Incentive spirometry. Continue to encourage early ambulation. Anemia: Hemoglobin today 11.1, yesterday it was 12.3. Most likely postoperative decline. Iron panel appreciated. Start patient on IV iron supplementation replenish 1 g over 5 days. Full code. Clear liquid diet. Lovenox. Attestations Medical Necessity Statement*: Status post laparoscopic appendectomy Coding Level of Care Code Acute Housekeeping Director for [facility] Fwd Diagnoses Acute appendicitis K35.30 Acute appendicitis type: with localized peritonitis Appendicitis abscess presence: without abscess Appendicitis gangrene presence: without gangrene Appendicitis perforation presence: without perforation Perforated appendix K35.32 S/P laparoscopic appendectomy Z90.49
[2020-02-01] MEDS: vancomycin 1,000 MG in sodium chloride 0.9% 250 ML 250 MG IV ×2 (13:14→23:32)
[2020-02-01] MEDS: HYDROmorphone 1 mg/mL INJ 1 mL 0.5 MG IVP ×2 (13:18→19:48)
[2020-02-01 17:56] LABS: Glucose Point of Care 106 mg/dL (70-110)
[2020-02-02] VITALS (8 sets, daily range): BP systolic 121–135; BP diastolic 75–84; PULSE 77–101; RESP 16–18; TEMP 36.6–37.6; O2SAT 91–97
[2020-02-02] MEDS: ondansetron 2 mg/ML SDV 2 mL 4 MG IVP ×2 (00:46→08:08)
[2020-02-02] MEDS: piperacillin-tazobactam 3.375 GM in sodium chloride 0.9% (plus) 50 ML IV ×3 (01:09→17:07)
[2020-02-02] MEDS: famotidine 20 mg/2 mL INJ IVP ×2 (02:00→12:17)
[2020-02-02 02:34] LABS: Basophils # 0.1 10^3/uL (0.0-0.1); Basophils % 0.3 %; Eosinophils # 0.2 10^3/uL (0.0-0.8); Eosinophils % 1.2 %; Hematocrit 38.4 % (37.0-47.0); Hemoglobin 12.4 g/dL (11.5-15.3); Lymphocytes # 2.3 10^3/uL (0.8-4.8); Lymphocytes % 13.5 %; Mean Corpuscular HGB Conc 32.3 g/dL (30.0-36.0); Mean Corpuscular Hemoglobin 28.8 pg (28.0-34.0); Mean Corpuscular Volume 89.1 fL (81-99); Mean Platelet Volume 11.5 fL (7.4-10.4); Monocytes # 1.5 10^3/uL (0.2-0.9); Monocytes % 8.6 %; Neutrophils # 12.97 10^3/uL (1.8-7.7); Neutrophils % 75.6 %; Nucleated Red Blood Cells % 0 %; Platelet Count 403 10^3/cmm (130-400); Red Blood Count 4.31 10^6/uL (4.1-5.3); Red Cell Distribution Width 13.8 % (12.1-15.1); White Blood Count 17.2 10^3/uL (4.0-10.0)
[2020-02-02 02:52] LABS: Alanine Aminotransferase 21 U/L (0-33); Albumin Level 3.2 g/dL (3.5-5.2); Alkaline Phosphatase 106 IU/L (35-105); Anion Gap 17.7 (5-19); Aspartate Amino Transferase 14 U/L (0-32); Blood Urea Nitrogen 15 mg/dL (8-23); Calcium 9.1 mg/dL (8.5-10.5); Carbon Dioxide 26 mmol/L (22-29); Chloride 98 mmol/L (98-107); Creatinine Clr Calc Pharmacy 97.3565; Globulin 3.7 g/dL (1.3-4.6); Glucose 116 mg/dL (65-115); Magnesium 2.1 mg/dL (1.7-2.3); Osmolality Calculated 288 mOsm/kg (285-295); Phosphorus 4.2 mg/dL (2.5-4.5); Potassium 3.7 mmol/L (3.5-5.1); Sodium 138 mmol/L (136-145); Total Bilirubin 0.5 mg/dL (0.15-1.2); Total Protein 6.9 g/dL (6.6-8.7)
[2020-02-02] MEDS: metoclopramide 5 mg/mL SDV 2 mL IVP (05:22)
[2020-02-02] MEDS: enoxaparin 40 mg/0.4 mL Syringe SUBCUT (05:23)
--- NOTE | 2020-02-02 06:00 | XR_ITS ---
WS: [id number] XR abdomen min 2V [id number] REASON FOR EXAM: sbo FINDINGS: Multiple dilated loops of small bowel as noted on the previous examination of 02/01/2020. Minimal col on gas. No free air. No nasogastric tube. XR/XR abdomen min 2V [id number] IMPRESSION: Significant small bowel distention remains relatively unchanged.
[2020-02-02] MEDS: iron sucrose 200 MG in sodium chloride 0.9% (100 ml) 100 ML 220 MG IV (08:02)
[2020-02-02] MEDS: sennosides-docusate Tablet 1 TAB PO ×2 (09:04→17:17)
[2020-02-02] MEDS: metoprolol succinate ER (24 HR) 25 mg Tablet PO (09:04)
[2020-02-02] MEDS: amlodipine 10 mg Tablet PO (09:04)
--- NOTE | 2020-02-02 09:09 | PC.NURSE ---
PATIENT HAS BEGUN TO PASS FLATUS, STARTING THIS MORNING AROUND 0700.
--- NOTE | 2020-02-02 09:37 | PC.NURSE ---
PATIENT UP TO CHAIR THIS MORNING. PATIENT AMBULATED 175 FT.
--- NOTE | 2020-02-02 10:31 | PM.PN ---
Subjective Subjective: Interval history: This morning patient was seen ambulating the halls with nursing staff, she feels much better, is passing gas, is wondering when she can eat Vitals/I&O/Wt Last Vital Signs Temp 99.6 F 02/02/20 08:00 Pulse 93 02/02/20 08:24 Resp 16 02/02/20 08:00 BP 121/75 02/02/20 08:00 Pulse Ox 95 02/02/20 08:24 02/01/20 02/02/20 02/02/20 22:59 06:59 14:59 Intake Total 1290 / 2610 530 / 3140 50 / 50 Output Total 800 / 800 200 / 1000 Balance 490 / 1810 330 / 2140 50 / 50 Physical Exam Const: COMMON NORMALS: no acute distress and patient oriented x3 HENMT: COMMON NORMALS: normocephalic HEAD & SCALP: normocephalic Neck/C-Spine: COMMON NORMALS: no JVD Resp: COMMON NORMALS: normal respiratory effort, No retractions, No use of accessory muscles and clear to auscultation bilaterally AUSCULTATION: clear to auscultation bilaterally Cardio: COMMON NORMALS: no JVD, regular rate, regular rhythm, S1 normal heart sound present and S2 normal heart sound present RATE: regular rate RHYTHM: regular rhythm HEART SOUNDS: S1 normal heart sound present and S2 normal heart sound present GI: COMMON NORMALS: Soft to palpation and no masses INSPECTION: Yes normal to inspection AUSCULTATION: Yes Hypoactive bowel sounds present PALPATION: Yes Soft to palpation and Yes Tenderness to palpation present (GI) (Minimal tenderness generalized) Details: LLQ, RLQ, LUQ and RUQ Extremity: COMMON NORMALS: capillary refill normal, no clubbing, cyanosis or edema, no calf tenderness and no pedal edema Neuro: COMMON NORMALS: patient oriented x3 Psych: COMMON NORMALS: mental status grossly normal Data : 02/02/20 01:43 02/02/20 01:43 A&P Assessment and plan (1) Acute appendicitis: Status: Resolved Qualifiers: Acute appendicitis type: with localized peritonitis Appendicitis abscess presence: without abscess Appendicitis gangrene presence: without gangrene Appendicitis perforation presence: without perforation Qualified Code(s): K35.30 - Acute appendicitis with localized peritonitis, without perforation or gangrene (2) Sepsis: Status: Acute (3) Perforated appendix: Status: Resolved (4) S/P laparoscopic appendectomy: Status: Acute (5) Postoperative ileus: Status: Acute Additional A&P Information Sepsis secondary to perforated appendicitis, lysis of small bowel adhesions resulting enterotomy requiring small bowel resection: Postoperative day 4 Now with postoperative ileus Remains afebrile, normotensive Has not had a bowel movement, now is passing gas, abdomen less distended Continue Zofran, Reglan Continue [place] Continue Dilaudid Lactic acid added to morning labs Appreciate Dr. Shelton recommendations. White blood cell count 17.2 this morning, continue with Zosyn. Vancomycin was added yesterday For now blood cultures have remained negative. Continue with D5 half NS at 50 cc/h. Awaiting bowel functions. Anticoagulation, diet advancement as per Dr. Shelton. Incentive spirometry. Continue to encourage early ambulation. Anemia: Hemoglobin today 12.4, most likely postoperative decline. Start patient on IV iron supplementation replenish 1 g over 5 days. Full code. Currently on a clear liquid diet Lovenox Plan for today: Serial abdominal exam, monitor for fevers, get up out of bed, nausea control, pain control, advance diet as per surgical service Attestations Medical Necessity Statement*: Patient requires hospitalization for perforated acute appendicitis, with ileus, Coding Level of Care Code Acute Community Outreach Director for [facility] Fw Diagnoses Acute appendicitis K35.30 Acute appendicitis type: with localized peritonitis Appendicitis abscess presence: without abscess Appendicitis gangrene presence: without gangrene Appendicitis perforation presence: without perforation Sepsis A41.9 Perforated appendix K35.32 S/P laparoscopic appendectomy Z90.49 Postoperative ileus K91.89; K56.7
[2020-02-02 11:55] LABS: Lactate (Lactic Acid level) 0.8 mmol/L (0.5-2.2)
[2020-02-02 12:05] LABS: Procalcitonin 0.62 ng/mL (0-0.5)
[2020-02-02 12:08] LABS: Vancomycin Trough 6.8 ug/mL (10-15)
[2020-02-02 12:16] LABS: C Reactive Protein 181.1 mg/L (0.0-4.9)
[2020-02-02] MEDS: vancomycin 1,250 MG/250 ML PIGGYBACK 250 MG IV (13:23)
--- NOTE | 2020-02-02 16:34 | P.PN_ITS ---
Subjective Subjective: Interval history: Patient still feels distended, no vomiting had one episode of nausea this morning, finally passing flatus Vitals/I&O/Wt Last Vital Signs Temp 99.5 F 02/02/20 15:41 Pulse 89 02/02/20 15:41 Resp 16 02/02/20 15:41 BP 133/80 02/02/20 15:41 Pulse Ox 91 02/02/20 15:41 02/02/20 02/02/20 02/02/20 06:59 14:59 22:59 Intake Total 780 / 3390 300 / 300 Output Total 200 / 1000 Balance 580 / 2390 300 / 300 Physical Exam Narrative: EXAM NARRATIVE: Abdomen: Soft, slightly distended, tender, incision clean dry and intact Data : 02/02/20 01:43 02/02/20 01:43 A&P Assessment and plan (1) S/P laparoscopic appendectomy: With postop ileus, WBC 17.2 Abdominal x-ray showed distended small bowel loops though patient is clinically doing much better, less nausea, less distention as well as passing flatus. We will therefore hold off on the NG tube. Discussed with the patient that she is at a high risk for intra-abdominal abscess due to significant purulent fluid noted within the abdominal cavity as well as gangrenous appendix. She can have minimal clears Continue IV Zosyn, and vancomycin Daily labs Ambulate ad ally. Lovenox for DVT prophylaxis Pepcid for GI prophylaxis Appreciate input from the hospitalist service Patient will need greater than 2 nights of inpatient stay to ensure resolution of obstruction Status: Acute Additional A&P Information Sepsis secondary to appendicitis: Postoperative day [address] Simon recommendations. Continue with Zosyn. MRSA awaited. If positive will start on vancomycin as well. For now blood cultures have remained negative. Continue with D5 half NS at 50 cc/h. Awaiting bowel functions. Anticoagulation, diet advancement as per Dr. Shelton. Incentive spirometry. Continue to encourage early ambulation. Anemia: Hemoglobin today 11.1, yesterday it was 12.3. Most likely postoperative decline. Iron panel appreciated. Start patient on IV iron supplementation replenish 1 g over 5 days. Full code. Clear liquid diet. Lovenox. 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
[2020-02-02] MEDS: D5-NS 0.45% + KCL 20 mEq 20 MEQ/1,000 ML BAG 100 MEQ IV (22:00)
[2020-02-03] VITALS (8 sets, daily range): BP systolic 123–167; BP diastolic 71–88; PULSE 74–84; RESP 17–20; TEMP 36.4–37; O2SAT 92–97
[2020-02-03] MEDS: vancomycin 1,250 MG/250 ML PIGGYBACK 250 MG IV ×2 (00:06→14:17)
[2020-02-03] MEDS: famotidine 20 mg/2 mL INJ IVP ×2 (00:17→13:00)
[2020-02-03] MEDS: piperacillin-tazobactam 3.375 GM in sodium chloride 0.9% (plus) 50 ML IV ×3 (01:08→16:53)
[2020-02-03] MEDS: enoxaparin 40 mg/0.4 mL Syringe SUBCUT (05:31)
[2020-02-03 06:15] LABS: Basophils # 0.1 10^3/uL (0.0-0.1); Basophils % 0.6 %; Eosinophils # 0.5 10^3/uL (0.0-0.8); Hematocrit 33.2 % (37.0-47.0); Hemoglobin 10.8 g/dL (11.5-15.3); Lymphocytes # 3.3 10^3/uL (0.8-4.8); Lymphocytes % 20.4 %; Mean Corpuscular HGB Conc 32.5 g/dL (30.0-36.0); Mean Corpuscular Hemoglobin 29.3 pg (28.0-34.0); Mean Corpuscular Volume 90.2 fL (81-99); Mean Platelet Volume 11.1 fL (7.4-10.4); Monocytes # 1.6 10^3/uL (0.2-0.9); Monocytes % 9.9 %; Neutrophils # 10.41 10^3/uL (1.8-7.7); Neutrophils % 64.7 %; Nucleated Red Blood Cells % 0 %; Platelet Count 401 10^3/cmm (130-400); Red Blood Count 3.68 10^6/uL (4.1-5.3); Red Cell Distribution Width 14.2 % (12.1-15.1); White Blood Count 16.1 10^3/uL (4.0-10.0)
[2020-02-03 06:38] LABS: Alanine Aminotransferase 27 U/L (0-33); Alkaline Phosphatase 114 IU/L (35-105); Anion Gap 14.6 (5-19); Aspartate Amino Transferase 21 U/L (0-32); Blood Urea Nitrogen 16 mg/dL (8-23); Calcium 8.6 mg/dL (8.5-10.5); Carbon Dioxide 25 mmol/L (22-29); Chloride 101 mmol/L (98-107); Globulin 3.1 g/dL (1.3-4.6); Glomerular Filtration Rate 85.4 mL/min (90-130); Glucose 92 mg/dL (65-115); Magnesium 2.2 mg/dL (1.7-2.3); Osmolality Calculated 285 mOsm/kg (285-295); Phosphorus 3.4 mg/dL (2.5-4.5); Potassium 3.6 mmol/L (3.5-5.1); Sodium 137 mmol/L (136-145); Total Bilirubin 0.4 mg/dL (0.15-1.2); Total Protein 6.1 g/dL (6.6-8.7)
[2020-02-03 06:55] LABS: Slide Review Slide Review Perform
[2020-02-03] MEDS: sennosides-docusate Tablet 1 TAB PO (08:41)
[2020-02-03] MEDS: iron sucrose 200 MG in sodium chloride 0.9% (100 ml) 100 ML 220 MG IV (08:41)
[2020-02-03] MEDS: amlodipine 10 mg Tablet PO (08:41)
[2020-02-03] MEDS: metoprolol succinate ER (24 HR) 25 mg Tablet PO (08:41)
--- NOTE | 2020-02-03 11:07 | P.PN_ITS ---
Subjective Subjective: Interval history: This morning patient was examined, she is quite elated, as she has had a bowel movement, is passing gas, abdomen still a bit distended, but overall is doing better Vitals/I&O/Wt Last Vital Signs Temp 97.5 F L 02/03/20 07:49 Pulse 81 02/03/20 09:20 Resp 18 02/03/20 09:20 BP 123/75 02/03/20 07:49 Pulse Ox 95 02/03/20 09:20 02/02/20 02/03/20 02/03/20 22:59 06:59 14:59 Intake Total 50 / 710 780 / 1490 240 / 240 Output Total 600 / 600 400 / 1000 Balance -550 / 110 380 / 490 240 / 240 Physical Exam Const: COMMON NORMALS: no acute distress and patient oriented x3 HENMT: COMMON NORMALS: normocephalic HEAD & SCALP: normocephalic Neck/C-Spine: COMMON NORMALS: no JVD Resp: COMMON NORMALS: normal respiratory effort, No retractions, No use of accessory muscles and clear to auscultation bilaterally AUSCULTATION: clear to auscultation bilaterally Cardio: COMMON NORMALS: no JVD, regular rate, regular rhythm, S1 normal heart sound present and S2 normal heart sound present RATE: regular rate RHYTHM: regular rhythm HEART SOUNDS: S1 normal heart sound present and S2 normal heart sound present GI: COMMON NORMALS: Soft to palpation INSPECTION: Yes abdominal distension AUSCULTATION: Yes Hypoactive bowel sounds present PALPATION: Yes Soft to palpation, Yes Tenderness to palpation present (GI) Details: LLQ, RLQ and RUQ, No Guarding due to palpation present (GI) and No Rigid due to palpation PERCUSSION: tympanic to percussion OTHER: Surgical site looks clean and dry Extremity: COMMON NORMALS: capillary refill normal, no clubbing, cyanosis or edema, no calf tenderness and no pedal edema Neuro: COMMON NORMALS: patient oriented x3 Psych: COMMON NORMALS: mental status grossly normal Data : 02/03/20 04:59 02/03/20 04:59 A&P Assessment and plan (1) Acute appendicitis: Status: Deleted Qualifiers: Acute appendicitis type: with localized peritonitis Appendicitis abscess presence: without abscess Appendicitis gangrene presence: without gangrene Appendicitis perforation presence: without perforation Qualified Code(s): K35.30 - Acute appendicitis with localized peritonitis, without perforation or gangrene (2) Sepsis: Status: Acute (3) Perforated appendix: Status: Deleted (4) S/P laparoscopic appendectomy: Status: Acute (5) Postoperative ileus: Status: Acute Additional A&P Information Sepsis secondary to perforated appendicitis, lysis of small bowel adhesions resulting enterotomy requiring small bowel resection: Postoperative day 5 Now with postoperative ileus Remains afebrile, normotensive Had a bowel movement, passing gas, abdomen less distended Continue Zofran, Reglan Continue [place] Continue Dilaudid Lactic acid added to morning labs Appreciate Dr. Shelton recommendations. White blood cell count 16.1 this morning, on vancomycin and Zosyn For now blood cultures have remained negative. Continue with D5 half NS at 50 cc/h. Bowel function is improving On clinical diet Anticoagulation, diet advancement as per Dr. Shelton. Incentive spirometry. Continue to encourage early ambulation. Anemia: Hemoglobin today 10.8, most likely postoperative decline. Start patient on IV iron supplementation replenish 1 g over 5 days. Full code. 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
[2020-02-03 12:54] LABS: Vancomycin Trough 14.6 ug/mL (10-15)
--- NOTE | 2020-02-03 14:46 | PM.PN ---
Subjective Subjective: Interval history: Patient denies any nausea, vomiting, had 2 bowel movements denies significant abdominal pain Vitals/I&O/Wt Last Vital Signs Temp 98.0 F 02/03/20 11:44 Pulse 82 02/03/20 11:44 Resp 17 02/03/20 11:44 BP 156/88 02/03/20 11:44 Pulse Ox 94 02/03/20 11:44 02/02/20 02/03/20 02/03/20 22:59 06:59 14:59 Intake Total 50 / 1490 780 / 1490 960 / 960 Output Total 600 / 1000 400 / 1000 Balance -550 / 490 380 / 490 960 / 960 Physical Exam Narrative: EXAM NARRATIVE: Abdomen: Soft, minimally distended, minimally tender, incision clean dry and intact Data : 02/03/20 04:59 02/03/20 04:59 A&P Assessment and plan (1) S/P laparoscopic appendectomy: With postop ileus, appears to be resolving WBC 16.1 Advance to GI soft diet Continue IV Zosyn, and vancomycin WBC Ambulate ad ally. Lovenox for DVT prophylaxis Pepcid for GI prophylaxis Appreciate input from the hospitalist service Patient will need greater than 2 nights of inpatient stay to ensure resolution of ileus, hopefully can go home tomorrow Status: Acute Additional A&P Information Sepsis secondary to appendicitis: Postoperative day [address] Simon recommendations. Continue with Zosyn. MRSA awaited. If positive will start on vancomycin as well. For now blood cultures have remained negative. Continue with D5 half NS at 50 cc/h. Awaiting bowel functions. Anticoagulation, diet advancement as per Dr. Shelton. Incentive spirometry. Continue to encourage early ambulation. Anemia: Hemoglobin today 11.1, yesterday it was 12.3. Most likely postoperative decline. Iron panel appreciated. Start patient on IV iron supplementation replenish 1 g over 5 days. Full code. Clear liquid diet. Lovenox. 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
[2020-02-04] VITALS: BP 126/80; PULSE 71; RESP 18; TEMP 36.9; O2SAT 99
[2020-02-04] MEDS: vancomycin 1,250 MG/250 ML PIGGYBACK 250 MG IV
[2020-02-04] MEDS: famotidine 20 mg/2 mL INJ IVP (00:48)
[2020-02-04] MEDS: piperacillin-tazobactam 3.375 GM in sodium chloride 0.9% (plus) 50 ML IV ×2 (01:21→08:18)
[2020-02-04 02:42] LABS: Basophils # 0.1 10^3/uL (0.0-0.1); Basophils % 0.6 %; Eosinophils # 0.4 10^3/uL (0.0-0.8); Hematocrit 33.6 % (37.0-47.0); Hemoglobin 11.1 g/dL (11.5-15.3); Lymphocytes # 3.2 10^3/uL (0.8-4.8); Lymphocytes % 21.8 %; Mean Corpuscular Hemoglobin 29.5 pg (28.0-34.0); Mean Corpuscular Volume 89.4 fL (81-99); Mean Platelet Volume 10.5 fL (7.4-10.4); Monocytes # 1.4 10^3/uL (0.2-0.9); Monocytes % 9.2 %; Neutrophils # 9.36 10^3/uL (1.8-7.7); Neutrophils % 63.4 %; Nucleated Red Blood Cells % 0 %; Platelet Count 436 10^3/cmm (130-400); Red Blood Count 3.76 10^6/uL (4.1-5.3); Red Cell Distribution Width 14.2 % (12.1-15.1); White Blood Count 14.8 10^3/uL (4.0-10.0)
[2020-02-04 03:12] LABS: Alanine Aminotransferase 34 U/L (0-33); Albumin Level 3.2 g/dL (3.5-5.2); Alkaline Phosphatase 115 IU/L (35-105); Anion Gap 16.4 (5-19); Aspartate Amino Transferase 23 U/L (0-32); Blood Urea Nitrogen 12 mg/dL (8-23); Calcium 8.7 mg/dL (8.5-10.5); Carbon Dioxide 24 mmol/L (22-29); Chloride 101 mmol/L (98-107); Globulin 3.2 g/dL (1.3-4.6); Glomerular Filtration Rate 85.4 mL/min (90-130); Glucose 85 mg/dL (65-115); Magnesium 2.1 mg/dL (1.7-2.3); Osmolality Calculated 285 mOsm/kg (285-295); Phosphorus 3.8 mg/dL (2.5-4.5); Potassium 3.4 mmol/L (3.5-5.1); Sodium 138 mmol/L (136-145); Total Bilirubin 0.4 mg/dL (0.15-1.2); Total Protein 6.4 g/dL (6.6-8.7)
[2020-02-04 04:00] VITALS: BP 139/85; PULSE 65; RESP 20; TEMP 36.8; O2SAT 98
[2020-02-04 04:36] LABS: Slide Review Slide Review Perform
[2020-02-04] MEDS: enoxaparin 40 mg/0.4 mL Syringe SUBCUT (05:45)
[2020-02-04 08:00] VITALS: BP 153/71; PULSE 58; RESP 18; TEMP 37.1; O2SAT 93
[2020-02-04 08:02] VITALS: PULSE 88; RESP 18; O2SAT 95
[2020-02-04] MEDS: amlodipine 10 mg Tablet PO (08:18)
[2020-02-04] MEDS: metoprolol succinate ER (24 HR) 25 mg Tablet PO (08:18)
[2020-02-04] MEDS: potassium chloride ER 20 mEq Tablet 40 MEQ PO (09:34)
--- NOTE | 2020-02-04 10:24 | PM.PN ---
Subjective Subjective: Interval history: This morning patient was examined, she sitting up in bed, feeling well, having good bowel movements, passing gas, no nausea, no vomiting, no fevers, she is ready to go home Vitals/I&O/Wt Last Vital Signs Temp 98.7 F 02/04/20 08:00 Pulse 88 02/04/20 08:02 Resp 18 02/04/20 08:02 BP 153/71 02/04/20 08:00 Pulse Ox 95 02/04/20 08:02 02/03/20 02/04/20 02/04/20 22:59 06:59 14:59 Intake Total 500 / 1510 50 / 1560 120 / 120 Output Total 200 / 200 850 / 1050 Balance 300 / 1310 -800 / 510 120 / 120 Physical Exam Const: COMMON NORMALS: no acute distress and patient oriented x3 HENMT: COMMON NORMALS: normocephalic HEAD & SCALP: normocephalic Neck/C-Spine: COMMON NORMALS: no JVD Resp: COMMON NORMALS: normal respiratory effort, No retractions, No use of accessory muscles and clear to auscultation bilaterally AUSCULTATION: clear to auscultation bilaterally Cardio: COMMON NORMALS: no JVD, regular rate, regular rhythm, S1 normal heart sound present and S2 normal heart sound present RATE: regular rate RHYTHM: regular rhythm HEART SOUNDS: S1 normal heart sound present and S2 normal heart sound present GI: COMMON NORMALS: Normal to inspection, nondistended, normoactive bowel sounds present, Soft to palpation, non-tender, no masses and no bruits INSPECTION: Yes abdominal distension PALPATION: Yes Soft to palpation Extremity: COMMON NORMALS: capillary refill normal, no clubbing, cyanosis or edema, no calf tenderness and no pedal edema Neuro: COMMON NORMALS: patient oriented x3 Psych: COMMON NORMALS: mental status grossly normal Data : 02/04/20 02:08 02/04/20 02:08 Micro: Microbiology 01/29/20 17:32 Blood Culture - Final Blood NO GROWTH AFTER 5 DAYS 01/29/20 17:26 Blood Culture - Final Blood NO GROWTH AFTER 5 DAYS A&P Assessment and plan (1) Acute appendicitis: Status: Deleted Qualifiers: Acute appendicitis type: with localized peritonitis Appendicitis abscess presence: without abscess Appendicitis gangrene presence: without gangrene Appendicitis perforation presence: without perforation Qualified Code(s): K35.30 - Acute appendicitis with localized peritonitis, without perforation or gangrene (2) Sepsis: Status: Acute (3) Perforated appendix: Status: Deleted (4) S/P laparoscopic appendectomy: Status: Acute (5) Postoperative ileus: Status: Acute Additional A&P Information Sepsis secondary to perforated appendicitis, lysis of small bowel adhesions resulting enterotomy requiring small bowel resection: Postoperative day 6 Now with postoperative ileus, resolved Remains afebrile, normotensive Had a bowel movement, passing gas, abdomen less distended Plan to discharge today on Cipro and Flagyl White blood cell count 14.8 this morning, Cipro and Flagyl as above Advised to drink plenty of electrolyte balance fluids Anemia: Hemoglobin today 11.1, most likely postoperative decline. Start patient on IV iron supplementation replenish 1 g over 5 days. Full code. Currently on a clear liquid diet Lovenox Plan for today: Discharge today Attestations Medical Necessity Statement*: Patient will be discharged today from perforated appendicitis, with postoperative ileus Coding Level of Care Code Acute Intensive Care Medicine Specialist for [facility] Fwd Diagnoses Acute appendicitis K35.30 Acute appendicitis type: with localized peritonitis Appendicitis abscess presence: without abscess Appendicitis gangrene presence: without gangrene Appendicitis perforation presence: without perforation Sepsis A41.9 Perforated appendix K35.32 S/P laparoscopic appendectomy Z90.49 Postoperative ileus K91.89; K56.7
--- NOTE | 2020-02-04 11:30 | PC.NURSE ---
Reviewed patient discharge with patient. Patient verbalized understanding of discharge instructions including how to take her medications. IV removed intact and patient tolerated well. Patient is A&Ox3. Respirations even and non-labored on room air. Patient ambulated to wheel chair and was pushed to her private car.
[2020-02-04 12:14] VITALS: BP 153/71; PULSE 88; RESP 18; TEMP 37.1; O2SAT 95
== END 2020-02-04 11:20 | disposition home or self-care (01) | DRG 853 ==
LOC: ER 22:53 → MEDSURG 23:55
PROVIDERS: Student in an Organized Health Care Education/Training Program; Surgery; Admitting Provider Internal Medicine; Emergency Provider Emergency Medicine; PCP Nurse Practitioner Family; Visit Provider Family Medicine
PROC: 0DTJ4ZZ Resection of Appendix, Percutaneous Endoscopic Approach (ICD-10-PCS; CPT 44970; principal; 2020-01-29 10:30)
PROC: 0DTJ4ZZ Resection of Appendix, Percutaneous Endoscopic Approach (ICD-10-PCS; CPT 44120; 2020-01-29 10:30)
DX: A41.9 Sepsis, unspecified organism (principal); K35.32 Acute appendicitis with perforation, localized peritonitis, and gangrene, without abscess; K56.7 Ileus, unspecified; I25.10 Atherosclerotic heart disease of native coronary artery without angina pectoris; E78.5 Hyperlipidemia, unspecified; Z79.890 Hormone replacement therapy; G47.33 Obstructive sleep apnea (adult) (pediatric); L40.50 Arthropathic psoriasis, unspecified; F17.210 Nicotine dependence, cigarettes, uncomplicated; K66.0 Peritoneal adhesions (postprocedural) (postinfection); D50.9 Iron deficiency anemia, unspecified
CPT/HCPCS: 12345; 36415; 36416; 74019; 74177; 80048; 80053; 80202; 81001; 82962; 83036; 83540; 83550; 83605; 83690; 83735; 84100; 84145; 84443; 85025; 86140; 87040; 87641; 88304; 88307; 94660; 94664; 96372; 96375; 97161; 97530; 99283; J0131; J1100; J1170; J1650; J1756; J1885; J2270; J2370; J2405; J2543; J2704; J2765; J3010; J3370; J3490; J7030; J7050; J7799; Q9967

== ENCOUNTER → 2020-03-29 09:09 | Outpatient (BNVA) | payer BC, SELFPAY | PROVIDERS: PCP Nurse Practitioner Family; Visit Provider Surgery | DX: Z01.812 Encounter for preprocedural laboratory examination (principal); K56.7 Ileus, unspecified; K91.89 Other postprocedural complications and disorders of digestive system; R10.84 Generalized abdominal pain | CPT/HCPCS: 87635 ==

== ENCOUNTER → 2020-04-07 10:00 | Outpatient (BNVA) | payer BC, SELFPAY | PROVIDERS: PCP Nurse Practitioner Family; Visit Provider Surgery | DX: Z01.812 Encounter for preprocedural laboratory examination (principal); R10.9 Unspecified abdominal pain; Z20.822 Contact with and (suspected) exposure to COVID-19 | CPT/HCPCS: 85025; 87635 ==

== ENCOUNTER 2020-04-13 08:54 | Day surgery (SDC) | payer BC, SELFPAY ==
[2020-04-13 09:43] VITALS: BMI 25.7
[2020-04-13 10:06] VITALS: BP 132/87; PULSE 86; RESP 18; TEMP 36.3; O2SAT 96
[2020-04-13] MEDS: sodium chloride 0.9% 1,000 ML 30 ML IV (10:19)
--- NOTE | 2020-04-13 10:24 | W.PM.OPSFHP ---
Same Day Surgery H&P Indication for Procedure/HPI DATE OF PROCEDURE: April 13, 2020 CHIEF COMPLAINT/INDICATIONFOR SURGICAL PROCEDURE: screening PREOP DIAGNOSIS: screening colonoscopy PLANNED PROCEDRUE: Operation Date: 04/13/20 10:15 Proposed Procedures p Colonoscopy 31538 k56.7 k91.89(Not Applicable) - Mason Shelton MD Medications/Allergies* Home Medications Medication Instructions Recorded Confirmed Type cetirizine 10 mg tablet 10 mg PO DAILY PRN tab 02/23/19 04/13/20 History acetaminophen [Tylenol Extra 500 - 1,000 mg PO PRN PRN 10/12/19 04/13/20 History Strength] Probiotic 1 cap PO DAILY 01/29/20 04/13/20 History multivitamin 1 tab PO DAILY@08 01/29/20 04/13/20 History adalimumab [Humira] 40 mg SUBCUT Q14D 03/30/20 04/13/20 History ezetimibe [Zetia] 10 mg PO DAILY 03/30/20 04/13/20 History Voltaren 2 g TOPICAL QID PRN 04/13/20 04/13/20 History Allergies/Adverse Reactions Allergy/AdvReac Type Severity Reaction Status Date / Time No Known Allergies Allergy Verified 02/25/20 08:22 Current Medications: Generic Name Dose Route Start Last Admin Trade Name Freq PRN Reason Stop Dose Admin Sodium Chloride 1,000 mls @ 30 mls/hr 04/13/20 10:15 04/13/20 10:19 Sodium Chloride 0.9% IV 04/14/20 10:14 30 mls/hr .Q24H TRES Administration Pertinent History/Comorbid Conditions* Medical History (Updated 02/05/20 @ 00:00 by ) Coronary artery disease Dyslipidemia GERD (gastroesophageal reflux disease) GENE (obstructive sleep apnea) Psoriasis Psoriatic arthritis Statin intolerance Surgical History (Updated 02/25/20 @ 15:31 by Mason Shelton MD) History of breast augmentation History of cholecystectomy History of hysterectomy S/P laparoscopic appendectomy (01/29/20) with small bowel resection Status post colonoscopy Family History (Updated 10/12/19 @ 18:49 by Lalit Moise MD) CAD (coronary artery disease) Mother Brother Social History Smoking and tobacco status: current every day smoker Second hand smoke exposure: Yes Alcohol intake: never Lives independently: Yes Marital status: Current occupational status: employed History of recent travel: No Current gender identity: Female Pertinent Exam Findings alert and oriented x 3 Recommendations Surgery/Procedure today Coding Level of Care Code 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
--- NOTE | 2020-04-13 10:29 | ANES.PREANE2 ---
Pre-Anesthetic Assessment Pre-Anesthetic Assessment: Height/Weight: Height 1.63 m Weight 68.039 kg Temp Pulse Resp BP Pulse Ox 97.4 F L 86 18 132/87 96 04/13/20 10:06 04/13/20 10:06 04/13/20 10:06 04/13/20 10:06 04/13/20 10:06 Preop Diagnosis: screening colonoscopy Proposed Procedure: Operation Date: 04/13/20 10:15 Proposed Procedures p Colonoscopy 32627 k56.7 k91.89(Not Applicable) - Mason Shelton MD Was Beta David taken within 24 hours: Yes Last intake: Intake Last Liquid Date 04/12/20 Last Liquid Time 21:00 Last Solid Date 04/11/20 Last Solid Time 21:00 Social: Social History: Tobacco and No alcohol Exam: Pre-Anes Outpt Exam: alert, oriented x 3 and regular rate & rhythm Airway: Submandibular: WNL Cervical ROM: WNL MP: 2 Dentition: Full CV/HEM: CV/HEM: HTN Metabolic: Comments: SLE? Anesthetic Plan: ASA status: 3 Anesthesia: MAC Risk of > 500 ml blood loss (7ml/kg in children): No Meds/Allergies Current Medications: Current Medications Generic Name Dose Route Start Last Admin Trade Name Freq PRN Reason Stop Dose Admin Sodium Chloride 1,000 mls @ 30 ml s/hr 04/13/20 10:15 04/13/20 10:19 Sodium Chloride 0.9% IV 04/14/20 10:14 30 mls/hr .Q24H TRES Administration PFSH Anesthesia PFSH: Medical History Coronary artery disease Dyslipidemia GERD (gastroesophageal reflux disease) GENE (obstructive sleep apnea) Psoriasis Psoriatic arthritis Statin intolerance Surgical History (Updated 02/25/20 @ 15:31 by Mason Shelton MD) History of breast augmentation History of cholecystectomy History of hysterectomy S/P laparoscopic appendectomy (01/29/20) with small bowel resection Status post colonoscopy Family History Mother CAD (coronary artery disease) Brother CAD (coronary artery disease) Social History Smoking and tobacco status: current every day smoker Second hand smoke exposure: Yes Alcohol intake: never Lives independently: Yes Marital status: Current occupational status: employed History of recent travel: No Current gender identity: Female Data Anesthesia Cardiac Studies: No Data to Display
[2020-04-13 11:31] VITALS: BP 138/91; PULSE 85; RESP 18; TEMP 36.8; O2SAT 100
--- NOTE | 2020-04-13 11:32 | ANE.PACU2 ---
Inpatient post-anesthesia follow up: Airway intact: Yes Vital signs: Temperature 98.2 F Pulse Rate 85 Respiratory Rate 18 Blood Pressure 138/91 Pulse Oximetry 100 Oxygen Delivery Me thod Room Air Oxygen Flow Rate Fraction of Inspir ed Oxygen Hydration adequate: Yes Nausea and vomiting: No Pain level: 1 Mental status: Baseline
[2020-04-13 11:46] VITALS: BP 159/99; PULSE 88; RESP 18; TEMP 36.8; O2SAT 95
[2020-04-13 12:03] VITALS: BP 150/97; PULSE 81; RESP 18; O2SAT 97
--- NOTE | 2020-04-13 12:04 | ANE.PACU2 ---
Inpatient post-anesthesia follow up: Airway intact: Yes Vital signs: Temperature 98.2 F Pulse Rate 81 Respiratory Rate 18 Blood Pressure 150/97 Pulse Oximetry 97 Oxygen Delivery Me thod Room Air Oxygen Flow Rate Fraction of Inspir ed Oxygen Hydration adequate: Yes Nausea and vomiting: No Pain level: 2 Mental status: Baseline
--- NOTE | 2020-04-13 12:28 | SUR.PHASEII ---
spoke with patients sister on the phone, patient stated she had gotten some gas out, but that she was having some pain in her abd. I instructed her to lay on her left side and bring knees up to help get some of that gas out, as well as can use a heating pad to help too. I also instructed her to call us back or come in if she isnt able to pass anymore gas out or if pain gets really bad.
== END 2020-04-13 12:18 | disposition home or self-care (01) ==
PROVIDERS: PCP Nurse Practitioner Family; Visit Provider Surgery
PROC: 0DJD8ZZ Inspection of Lower Intestinal Tract, Via Natural or Artificial Opening Endoscopic (ICD-10-PCS; CPT 45378; principal; 2020-04-13 10:15)
DX: Z12.11 Encounter for screening for malignant neoplasm of colon (principal); D12.5 Benign neoplasm of sigmoid colon; K62.89 Other specified diseases of anus and rectum; I25.10 Atherosclerotic heart disease of native coronary artery without angina pectoris; E78.5 Hyperlipidemia, unspecified; K21.9 Gastro-esophageal reflux disease without esophagitis; G47.33 Obstructive sleep apnea (adult) (pediatric); F17.210 Nicotine dependence, cigarettes, uncomplicated; I10 Essential (primary) hypertension; K57.30 Diverticulosis of large intestine without perforation or abscess without bleeding
CPT/HCPCS: 45380; 88305; J2704; J7030

== ENCOUNTER → 2021-10-30 07:51 | Outpatient (BNVA) | payer BC, SELFPAY | PROVIDERS: PCP Nurse Practitioner Family; Visit Provider Nurse Practitioner Family | DX: E78.5 Hyperlipidemia, unspecified (principal); F17.200 Nicotine dependence, unspecified, uncomplicated; I10 Essential (primary) hypertension; I25.10 Atherosclerotic heart disease of native coronary artery without angina pectoris | CPT/HCPCS: 80053; 80061; 84443; 85025 ==

== ENCOUNTER → 2021-11-26 09:23 | Outpatient (BNVA) | payer BC, SELFPAY | PROVIDERS: PCP Nurse Practitioner Family; Visit Provider Family Medicine | DX: R73.9 Hyperglycemia, unspecified (principal); K76.0 Fatty (change of) liver, not elsewhere classified | CPT/HCPCS: 80053; 83036; 86705; 86706; 86709; 86803; 87340 ==

== ENCOUNTER → 2022-06-19 15:56 | Outpatient (BNVA) | payer BC, SELFPAY | PROVIDERS: PCP Nurse Practitioner Family; Visit Provider Nurse Practitioner Family | DX: I10 Essential (primary) hypertension (principal); R73.9 Hyperglycemia, unspecified | CPT/HCPCS: 80053; 80061; 83036; 84443; 85025 ==

== ENCOUNTER 2022-07-10 08:10 | Outpatient (CLI) | payer BC, SELFPAY ==
--- NOTE | 2022-07-10 08:20 | MM_ITS ---
WS: [id number] BILATERAL SCREENING DIGITAL BREAST MAMMOGRAPHY WITH KELECHI DISPLACEMENT VIEWS. CAD PERFORMED. HISTORY: Screening COMPARISON: 05/27/2018, 05/16/2017, 05/15/2016 and ultrasound 05/20/2017 Bilateral craniocaudal and mediolateral oblique views are performed with tomosynthesis and SM. Kelechi displacement views in CC and MLO projection also performed. Breasts composition: The breasts are heterogeneously dense, which may obscure small masses. Implants are intact. Long-term stability of the mass posterior to the RIGHT nipple which has been pre viously described as a cyst. Benign calcifications LEFT breast. MM/[place] [id number] IMPRESSION: BI-RADS: 2-Benign FOLLOW-UP: 1 Year Follow-up
== END 2022-07-10 08:11 | disposition home or self-care (01) ==
PROVIDERS: PCP Nurse Practitioner Family; Visit Provider Nurse Practitioner Family
DX: Z12.31 Encounter for screening mammogram for malignant neoplasm of breast (principal)
CPT/HCPCS: 77063; 77067; 80053; 80061; 83036; 84443; 85025

== ENCOUNTER → 2022-11-27 08:10 | Outpatient (BNVA) | payer BC, SELFPAY | PROVIDERS: PCP Nurse Practitioner Family; Visit Provider Podiatrist Foot & Ankle Surgery | DX: L60.8 Other nail disorders (principal); B35.1 Tinea unguium | CPT/HCPCS: 80053 ==

== ENCOUNTER 2023-07-16 08:46 | Day surgery (SDC) | payer BC, SELFPAY ==
[2023-07-16 09:04] VITALS: BP 137/83; PULSE 77; RESP 18; TEMP 36.1; O2SAT 96; BMI 27.4
[2023-07-16] MEDS: sodium chloride 0.9% 1,000 ML 30 ML IV (09:19)
--- NOTE | 2023-07-16 09:29 | ANES.PREANE2 ---
Pre-Anesthetic Assessment Height/Weight: Height 1.63 m Weight 72.575 kg Temp Pulse Resp BP Pulse Ox O2 Del Method 97.0 F L 77 18 137/83 96 Room Air 07/16/23 09:04 07/16/23 09:04 07/16/23 09:04 07/16/23 09:04 07/16/23 09:04 07/16/23 09:04 Operation Date: 07/16/23 10:00 Proposed Procedures p EGD 46765, 86254, G0105, K21.9, K92.2, Z86.010(Not Applicable) - Balaji Gabriel DO s Colonoscopy(Not Applicable) - Balaji Gabriel DO Familial anesthetic complications: None Was Beta David taken within 24 hours: Yes Was Clonidine taken within 24 hours: N/A Last intake: Intake Last Liquid Date 07/15/23 Last Liquid Time 21:00 Last Solid Date 07/14/23 Last Solid Time 18:30 Social No alcohol and No tobacco Exam alert, oriented x 3, clear to auscultation bilaterally and regular rate & rhythm Airway Submandibular: within normal limits Cervical ROM: within normal limits Mallampati: Class II Dentition: full History/ROS No significant history except as noted and No significant complaints Pulmonary Sleep Apnea (Uses CPAP) CV/HEM Hypertension and Myocardial Infarction (Stress related) None reported Hepatic None reported GI Gastroesophageal Reflux Disease (None this morning, controlled with meds) Metabolic Hyperlipidemia Musc/skel Scoliosis Neuropsych None reported Anesthetic Plan ASA status: 2 Anesthesia: Anesthesia Evaluation, General and MAC Risk of > 500 ml blood loss (7ml/kg in children): No Medications/Allergies Home Medications Medication Instructions Recorded Confirmed Last Taken Type cetirizine 10 mg tablet (Zyrtec) 10 mg PO DAILY PRN Allergy Symptoms 02/23/19 07/10/23 07/10/23 History acetaminophen 500 mg tablet 500 - 1,000 mg PO PRN PRN Pain 10/12/19 07/16/23 3 Months Ago History (Tylenol Extra Strength) ~04/17/23 aspirin 81 mg tablet,delayed 81 mg PO DAILY 05/11/21 07/10/23 07/12/23 History release (Adult Low Dose Aspirin) adalimumab 40 mg/0.8 mL 40 mg SUBCUT Q14D 10/31/21 07/10/23 07/07/23 History subcutaneous syringe kit (Humira) ezetimibe 10 mg tablet (Zetia) 10 mg PO DAILY #90 tabs 10/23/22 07/10/23 07/15/23 Rx metoprolol succinate 25 mg 25 mg PO DAILY #90 tabs 10/23/22 07/10/23 07/10/23 Rx tablet,extended release 24 hr pantoprazole 40 mg tablet,delayed 40 mg PO BID 6 weeks #84 tabs 06/16/23 07/10/23 07/15/23 Rx release (Protonix) Allergies Allergy/AdvReac Type Severity Reaction Status Date / Time Igxrpqa-KPT-FfP Reductase Allergy Unknown Unknown Verified 06/24/23 16:29 Inhibitor Current Medications Generic Name Dose Route Start Last Admin Trade Name Freq PRN Reason Stop Dose Admin Sodium Chloride 1,000 mls @ 30 mls/hr 07/16/23 09:00 07/16/23 09:19 Sodium Chloride 0.9% IV 07/17/23 08:59 30 mls/hr .Q24H TRES Administration PFSH Anesthesia Medical History History of colon polyps Fatty liver GERD (gastroesophageal reflux disease) Coronary artery disease Psoriatic arthritis Dyslipidemia GENE (obstructive sleep apnea) Psoriasis Statin intolerance Surgical History S/P laparoscopic appendectomy (01/29/20) with small bowel resection Status post colonoscopy (04/13/20) History of breast augmentation History of hysterectomy History of cholecystectomy Family History Mother CAD (coronary artery disease) Brother CAD (coronary artery disease) Social History Smoking and tobacco/nicotine status: former use of tobacco/nicotine Quit status (tobacco/nicotine): has quit using Year quit tobacco: 2020 Second hand smoke exposure: Yes Alcohol intake: current Alcohol intake frequency: holidays/special occasions only Substance/Drug Use: never Lives independently: Yes Marital status: Current occupational status: employed Current gender identity: Female Data Anesthesia Cardiac Studies: No Data to Display
--- NOTE | 2023-07-16 09:54 | PM.HP ---
Providers/Chief Complaint Primary Care Provider: JOSHUA Cary Chief Complaint: K21.9 History of Present Illness Charis Petersen is a 62 year old female Review of Systems General: Reports: 10 or more systems reviewed and unremarkable except in HPI and below Medications/Allergies Home Medications Medication Instructions Recorded Confirmed Last Taken Type cetirizine 10 mg tablet (Zyrtec) 10 mg PO DAILY PRN Allergy Symptoms 02/23/19 07/10/23 07/10/23 History acetaminophen 500 mg tablet 500 - 1,000 mg PO PRN PRN Pain 10/12/19 07/16/23 3 Months Ago History (Tylenol Extra Strength) ~04/17/23 aspirin 81 mg tablet,delayed 81 mg PO DAILY 05/11/21 07/10/23 07/12/23 History release (Adult Low Dose Aspirin) adalimumab 40 mg/0.8 mL 40 mg SUBCUT Q14D 10/31/21 07/10/23 07/07/23 History subcutaneous syringe kit (Humira) ezetimibe 10 mg tablet (Zetia) 10 mg PO DAILY #90 tabs 10/23/22 07/10/23 07/15/23 Rx metoprolol succinate 25 mg 25 mg PO DAILY #90 tabs 10/23/22 07/10/23 07/10/23 Rx tablet,extended release 24 hr pantoprazole 40 mg tablet,delayed 40 mg PO BID 6 weeks #84 tabs 06/16/23 07/10/23 07/15/23 Rx release (Protonix) Allergies Allergy/AdvReac Type Severity Reaction Status Date / Time Xchascc-UKR-YfN Reductase Allergy Unknown Unknown Verified 06/24/23 16:29 Inhibitor PFSH Acute PFSH: Medical History History of colon polyps Fatty liver GERD (gastroesophageal reflux disease) Coronary artery disease Psoriatic arthritis Dyslipidemia GENE (obstructive sleep apnea) Psoriasis Statin intolerance Surgical History S/P laparoscopic appendectomy (01/29/20) with small bowel resection Status post colonoscopy (04/13/20) History of breast augmentation History of hysterectomy History of cholecystectomy Family History Mother CAD (coronary artery disease) Brother CAD (coronary artery disease) Social History Smoking and tobacco/nicotine status: former use of tobacco/nicotine Quit status (tobacco/nicotine): has quit using Year quit tobacco: 2020 Second hand smoke exposure: Yes Alcohol intake: current Alcohol intake frequency: holidays/special occasions only Substance/Drug Use: never Lives independently: Yes Marital status: Current occupational status: employed Current gender identity: Female Vitals/I&O/Wt Last Vital Signs Temp 97.0 F L 07/16/23 09:04 Pulse 77 07/16/23 09:04 Resp 18 07/16/23 09:04 BP 137/83 07/16/23 09:04 Pulse Ox 96 07/16/23 09:04 O2 Del Method Room Air 07/16/23 09:04 Weight last 48 hrs Weight 160 lb A&P Assessment and plan (1) GI bleed: Plan EGD and colonoscopy Attestations Medical Necessity Statement*: Home Coding Level of Care Code Acute Code for Chg Fwd Diagnoses GI bleed K92.2
[2023-07-16 10:43] VITALS: BP 132/82; PULSE 70; RESP 16; TEMP 36.4; O2SAT 99
[2023-07-16 11:00] VITALS: BP 142/84; PULSE 67; RESP 18; O2SAT 96
[2023-07-16 11:18] VITALS: BP 139/77; PULSE 67; RESP 18; O2SAT 97
--- NOTE | 2023-07-16 11:43 | FL_ITS ---
WS: [id number] Exam: FL barium enema w air* [id number] Date/Time of Exam: 07/16/2023 11:43 AM Reason For Exam: incomplete colonoscopy Air contrast barium: Was performed. The colon fills to the cecum with reflux into the terminal ileum. No sign of constricting colonic mas s. There is diverticulosis of the sigmoid colon with some associated spasm. The haustral pattern is o therwise well maintained. The colon is not displaced. A tiny amount of retained particulate stool is noted which would preclude detection of a tiny mucosal lesion or polyp. FL/FL barium enema w air* [id number] IMPRESSION: 1. No sign of obvious colonic mass or constricting lesion. 2. Diverticulosis and spasm of the sigmoid colon. 3. Small amount of retained particulate fecal debris which would preclude detec tion of a tiny polyp or mucosal lesion.
--- NOTE | 2023-07-16 11:50 | ANE.PACU2 ---
Inpatient post-anesthesia follow up: Airway intact: Yes Vital signs: Temperature 97.6 F Pulse Rate 67 Respiratory Rate 18 Blood Pressure 139/77 Pulse Oximetry 97 Oxygen Delivery Me thod Room Air Oxygen Flow Rate Fraction of Inspir ed Oxygen Hydration adequate: Yes Nausea and vomiting: No Pain level: 1 Mental status: Baseline
== END 2023-07-16 11:50 | disposition home or self-care (01) ==
PROVIDERS: PCP Nurse Practitioner Family; Visit Provider Surgery
PROC: 0DJ08ZZ Inspection of Upper Intestinal Tract, Via Natural or Artificial Opening Endoscopic (ICD-10-PCS; CPT 43235; principal; 2023-07-16 10:00)
PROC: 0DJD8ZZ Inspection of Lower Intestinal Tract, Via Natural or Artificial Opening Endoscopic (ICD-10-PCS; CPT 45330; 2023-07-16 10:00)
DX: K21.9 Gastro-esophageal reflux disease without esophagitis (principal); Z79.82 Long term (current) use of aspirin; Z86.010 Personal history of colon polyps; I25.10 Atherosclerotic heart disease of native coronary artery without angina pectoris; E78.5 Hyperlipidemia, unspecified; G47.33 Obstructive sleep apnea (adult) (pediatric); I10 Essential (primary) hypertension; I25.2 Old myocardial infarction; Z87.891 Personal history of nicotine dependence; K64.8 Other hemorrhoids
CPT/HCPCS: 43239; 45330; 74280; 88305; 88342; J2704; J7030

== ENCOUNTER → 2023-10-23 09:10 | Outpatient (BNVA) | payer BC, SELFPAY | PROVIDERS: PCP Nurse Practitioner Family; Visit Provider Nurse Practitioner Family | DX: R76.8 Other specified abnormal immunological findings in serum (principal) | CPT/HCPCS: 80053; 85025; 85651; 86003; 86008; 86140; 86160; 86162; 86235; 86255; 86376; 86431 ==

== ENCOUNTER 2023-12-23 20:00 | Outpatient (CLI) | payer BC, SELFPAY | END 2023-12-23 20:01 | disposition home or self-care (01) | LOC: SLEEP 23:49 | PROVIDERS: PCP Nurse Practitioner Family; Visit Provider Nurse Practitioner Family | DX: G47.33 Obstructive sleep apnea (adult) (pediatric) (principal); Z99.89 Dependence on other enabling machines and devices | CPT/HCPCS: 95811 ==

== ENCOUNTER 2024-01-08 06:00 | Outpatient (RCR) | payer BC, SELFPAY | END 2024-01-17 23:59 | disposition home or self-care (01) | LOC: TPT 06:00 | PROVIDERS: PCP Nurse Practitioner Family; Visit Provider Podiatrist Foot & Ankle Surgery | DX: M72.2 Plantar fascial fibromatosis (principal) | CPT/HCPCS: 97035; 97110; 97140; 97162 ==

== ENCOUNTER 2024-01-18 06:00 | Outpatient (RCR) | payer BC, SELFPAY | END 2024-02-17 23:59 | disposition home or self-care (01) | LOC: TPT 06:00 | PROVIDERS: PCP Nurse Practitioner Family; Visit Provider Podiatrist Foot & Ankle Surgery | DX: M72.2 Plantar fascial fibromatosis (principal) | CPT/HCPCS: 97035; 97110; 97140 ==

== ENCOUNTER 2024-01-21 17:02 | Outpatient (CLI) | payer BC, SELFPAY ==
--- NOTE | 2024-01-21 17:30 | US_ITS ---
WS: [id number] ULTRASOUND SOFT TISSUES mid LEFT back. HISTORY: R22.2 - Localized swelling, mass and lump, trunk COMPARISON: None available. TECHNIQUE: 2-D and color Doppler imaging is submitted. Ultrasound is directed over the mid LEFT back as directed by the patient. No soft tissue mass identif ied. Normal appearance of the epidermis and fascial plane. No displacement of the muscles. US/US soft tissue/extremity [id number] IMPRESSION: Negative ultrasound over the mid LEFT back.
== END 2024-01-21 17:03 | disposition home or self-care (01) ==
LOC: RAD 17:02
PROVIDERS: PCP Nurse Practitioner Family; Visit Provider Nurse Practitioner Family
DX: R22.2 Localized swelling, mass and lump, trunk (principal)
CPT/HCPCS: 76882

== ENCOUNTER 2024-02-04 08:25 | Outpatient (CLI) | payer BC, SELFPAY ==
--- NOTE | 2024-02-04 09:00 | CT_ITS ---
WS: [id number] LDCT LUNG CANCER SCREENING TECHNIQUE: Noncontrast CT of the chest with coronal and sagittal reformatted images. CLINICAL INFORMATION: Z87.891 - Personal history of nicotine dependence COMPARISON: None. DLP: 71.42 mGy.cm DIvol: Mean CTDIvol: 1.70 (mGy) All CT scans at [facility] use at least one of these dose optimization techniques: automat ed exposure control; mA and/or kV adjustment per patient size (includes targeted exams where dose is matched to clinical indication); or iterative reconstruction. FINDINGS: Fibrosis in the lung apices. Noncalcified nodule RIGHT upper lobe posteriorly measuring 5 m m. Tiny subpleural nodule RIGHT upper lobe anteriorly. Postoperative changes bilateral breast prosthesis. Normal caliber thoracic aorta. Aortic calcificatio n. No mediastinal or hilar lymphadenopathy. No axillary lymphadenopathy. Diffuse fatty infiltration of the liver. Cholecystectomy clips. Adrenal glands are normal. Moderate t horacic kyphosis with chronic anterior wedging in the midthoracic spine. Thoracic curve convex LEFT. CT/CT lung screening [id number] IMPRESSION: LUNG-RADS: 2-Benign Appearance or Behavior FOLLOW UP: 12 Month: Continue annual screening with LDCT
== END 2024-02-04 08:26 | disposition home or self-care (01) ==
LOC: RAD 08:25
PROVIDERS: PCP Nurse Practitioner Family; Visit Provider Nurse Practitioner Family
DX: Z12.2 Encounter for screening for malignant neoplasm of respiratory organs (principal); Z87.891 Personal history of nicotine dependence; J84.10 Pulmonary fibrosis, unspecified; R91.8 Other nonspecific abnormal finding of lung field; Z98.890 Other specified postprocedural states; I70.0 Atherosclerosis of aorta; K76.0 Fatty (change of) liver, not elsewhere classified; M40.294 Other kyphosis, thoracic region
CPT/HCPCS: 71271

== ENCOUNTER 2024-02-18 06:30 | Outpatient (RCR) | payer BC, SELFPAY | END 2024-03-19 23:59 | disposition home or self-care (01) | LOC: TPT 06:30 | PROVIDERS: PCP Nurse Practitioner Family; Visit Provider Podiatrist Foot & Ankle Surgery | DX: M72.2 Plantar fascial fibromatosis (principal) | CPT/HCPCS: 97035; 97110; 97140; 97164 ==

== ENCOUNTER → 2024-03-10 12:05 | Outpatient (BNVA) | payer BC, SELFPAY | PROVIDERS: PCP Nurse Practitioner Family; Visit Provider Nurse Practitioner Family | DX: R30.0 Dysuria (principal); J02.9 Acute pharyngitis, unspecified | CPT/HCPCS: 81000; 87880 ==

== ENCOUNTER → 2024-06-25 08:42 | Outpatient (BNVA) | payer BC, SELFPAY | PROVIDERS: PCP Nurse Practitioner Family; Visit Provider Nurse Practitioner Family | DX: Z91.09 Other allergy status, other than to drugs and biological substances (principal); I10 Essential (primary) hypertension; R73.9 Hyperglycemia, unspecified | CPT/HCPCS: 80053; 80061; 82306; 82607; 82785; 83036; 84443; 85025; 86001; 86003; 86618; 86666; 86757 ==

== ENCOUNTER 2024-07-21 07:00 | Outpatient (CLI) | payer BC, SELFPAY ==
--- NOTE | 2024-07-21 07:30 | US_ITS ---
WS: [id number] RIGHT UPPER QUADRANT ULTRASOUND HISTORY: R79.89 - Other specified abnormal findings of blood chemistry COMPARISON: 11/22/2016 Liver: 18.5 cm in length. Mildly enlarged liver. Coarse echotexture with no mass. Portal Vein: Normal hepatopetal flow with monophasic waveform. Gallbladder: Prior cholecystectomy. CBD: 0.2 cm Pancreas: Normal size and echogenicity. Right kidney: 10.0 cm in length. Normal size and echogenicity. No hydronephrosis or mass. Aorta and IVC: Unremarkable abdominal aorta and IVC. No ascites. US/US liver [id number] IMPRESSION: 1. Prior cholecystectomy. 2. Mild hepatomegaly with hepatic steatosis.
== END 2024-07-21 07:01 | disposition home or self-care (01) ==
PROVIDERS: PCP Nurse Practitioner Family; Visit Provider Nurse Practitioner Family
DX: R79.89 Other specified abnormal findings of blood chemistry (principal); Z90.49 Acquired absence of other specified parts of digestive tract; R16.0 Hepatomegaly, not elsewhere classified; K76.0 Fatty (change of) liver, not elsewhere classified
CPT/HCPCS: 76705

== ENCOUNTER 2024-07-21 13:56 | Outpatient (CLI) | payer BC, SELFPAY | END 2024-07-21 13:57 | disposition home or self-care (01) | LOC: SPT 13:56 | PROVIDERS: PCP Nurse Practitioner Family; Visit Provider Podiatrist Foot & Ankle Surgery | DX: Z46.89 Encounter for fitting and adjustment of other specified devices (principal); M72.2 Plantar fascial fibromatosis | CPT/HCPCS: L3030 ==

== ENCOUNTER → 2024-07-26 12:48 | Outpatient (BNVA) | payer BC, SELFPAY | PROVIDERS: PCP Nurse Practitioner Family; Visit Provider Nurse Practitioner Family | DX: R79.89 Other specified abnormal findings of blood chemistry (principal) | CPT/HCPCS: 80053 ==

== ENCOUNTER → 2024-09-14 08:26 | Outpatient (BNVA) | payer BC, SELFPAY | PROVIDERS: PCP Nurse Practitioner Family; Visit Provider Nurse Practitioner Family | DX: M79.643 Pain in unspecified hand (principal) | CPT/HCPCS: 73130 ==

== ENCOUNTER → 2024-12-09 09:32 | Outpatient (BNVA) | payer MEDICARE, BC, SELFPAY | PROVIDERS: PCP Nurse Practitioner Family; Visit Provider Nurse Practitioner Family | DX: I10 Essential (primary) hypertension (principal); L40.9 Psoriasis, unspecified; R73.9 Hyperglycemia, unspecified; J44.9 Chronic obstructive pulmonary disease, unspecified; R11.0 Nausea; E78.5 Hyperlipidemia, unspecified | CPT/HCPCS: 80053; 80061; 82103; 82306; 82607; 83036; 84443; 85025; 86003; 86008 ==

== ENCOUNTER → 2025-01-12 08:36 | Outpatient (BNVA) | payer MEDICARE, OTHER, SELFPAY | PROVIDERS: PCP Nurse Practitioner Family; Visit Provider Nurse Practitioner Family | DX: J02.9 Acute pharyngitis, unspecified (principal) | CPT/HCPCS: 87071; 87880 ==